=== PATIENT | female | born 1955 | race Caucasian/White ===

== ENCOUNTER 2017-05-28 09:16 | Emergency (ER) | payer MEDICARE, MEDICAID ==
[~2017-05-28] VITALS: Ht 165.1 cm; Wt 65.9 kg
[~2017-05-28 09:16] MED LIST: ALBU8HFA PO; DIVA500T2 PO; ONDA8TAB6 PO; PARO40TA PO
[2017-05-28] MEDS ORDERED: PRED20TA PO (12:03)
[2017-05-28 12:12] VITALS: BP 122/62
== END 2017-05-28 12:13 | disposition home or self-care (01) ==
LOC: ER 09:16
DX: J42 Unspecified chronic bronchitis (principal); J06.9 Acute upper respiratory infection, unspecified; K13.79 Other lesions of oral mucosa; F17.210 Nicotine dependence, cigarettes, uncomplicated; J45.909 Unspecified asthma, uncomplicated; G89.29 Other chronic pain; F12.10 Cannabis abuse, uncomplicated; Z86.14 Personal history of Methicillin resistant Staphylococcus aureus infection; Z98.890 Other specified postprocedural states; Z88.0 Allergy status to penicillin; Z88.8 Allergy status to other drugs, medicaments and biological substances
CPT/HCPCS: 99283; A6266; A6449

== ENCOUNTER 2017-11-13 12:48 | Inpatient (IN) | payer MEDICARE, MEDICAID ==
[~2017-11-13] VITALS: Ht 165.1 cm; Wt 69.2 kg
[~2017-11-13 12:48] MED LIST changes: -ALBU8HFA PO; +BUPR1FIL17 SL; +CYCL-1 PO; +DIVA125T3 PO; -DIVA500T2 PO; +GABA800T2 PO; +HYDR-3686 PO; -ONDA8TAB6 PO; +PRAZ5CAP PO
[2017-11-13 14:13] VITALS: BP 130/76
[2017-11-13] MEDS ORDERED: ADV50250 INH (15:22)
[2017-11-13] MEDS ORDERED: PARO20TA6 PO (15:22)
[2017-11-13] MEDS ORDERED: GABA800T2 PO ×2 (15:22)
[2017-11-13] MEDS ORDERED: VALP250C44 PO (15:22)
[2017-11-13] MEDS ORDERED: PRAZ1CAP5 PO (15:22)
[2017-11-13] MEDS ORDERED: DIVA500T40 PO (15:22)
[2017-11-13] MEDS ORDERED: IBUP-1985 PO (15:22)
[2017-11-13] MEDS ORDERED: magnesium hydroxide 30ml (MOM) UD suspension PO PRN (15:30)
[2017-11-13] MEDS ORDERED: acetaminophen 325mg tablet PO PRN (15:30)
[2017-11-13] MEDS ORDERED: mag hydrox/Alum hydrox/simeth 30ml oral suspension PO PRN (15:30)
[2017-11-13 19:00] VITALS: BP 141/75
[2017-11-13] MEDS ORDERED: valproic acid 250mg capsule PO SCH (20:00)
[2017-11-13] MEDS ORDERED: [UNRECOGNIZED DRUG - OTHER] SL SCH (20:00)
[2017-11-13] MEDS ORDERED: NALOXONE HCL SL SCH (20:00)
[2017-11-13] MEDS ORDERED: BUPRENORPHINE HCL SL SCH (20:00)
[2017-11-13] MEDS: hydrOXYzine 25 MG tablet PO SCH (21:07)
[2017-11-13] MEDS: buprenorphine/naloxone 2-0.5mg sublingual tablet SL SCH (21:07)
[2017-11-13] MEDS: divalproex sodium 500mg tablet.DR PO SCH (21:07)
[2017-11-13] MEDS: cyclobenzaprine 10mg tablet PO PRN (21:08)
[2017-11-13] MEDS: PARoxetine 20mg tablet PO SCH (21:08)
[2017-11-13] MEDS: prazosin 1mg capsule PO SCH (21:08)
[2017-11-13] MEDS: gabapentin 400mg capsule PO SCH (21:08)
[2017-11-13] MEDS: ibuprofen 200mg tablet PO PRN (21:09)
[2017-11-14 07:25] LABS: HEMOGLOBIN A1C 5.5 % (4.5-6.2)
[2017-11-14 07:33] LABS: CHOL/HDL RATIO 5.1 (0.00-4.99); CHOLESTEROL 179 MG/DL (0-200); HDL CHOLESTEROL 35 MG/DL (35-60); LDL CHOLESTEROL 109 MG/DL (50-100); TRIGLYCERIDES 184 MG/DL (20-135)
[2017-11-14 08:00] VITALS: BP 113/83
[2017-11-14] MEDS: gabapentin 400mg capsule PO SCH ×3 (08:57→19:58)
[2017-11-14] MEDS: valproic acid 250mg capsule PO SCH ×2 (08:58→12:55)
[2017-11-14] MEDS: buprenorphine/naloxone 2-0.5mg sublingual tablet SL SCH ×2 (08:58→19:56)
[2017-11-14] MEDS: cyclobenzaprine 10mg tablet PO PRN (09:02)
[2017-11-14] MEDS: fluticasone/vilanterol 200mcg/25mcg inhaler IH SCH (12:56)
[2017-11-14] MEDS: nicotine 14mg patch - 24hr TD SCH (17:44)
[2017-11-14 19:00] VITALS: BP 127/87
[2017-11-14] MEDS: hydrOXYzine 25 MG tablet PO SCH (19:57)
[2017-11-14] MEDS: divalproex sodium 500mg tablet.DR PO SCH (19:57)
[2017-11-14] MEDS: prazosin 1mg capsule PO SCH (19:57)
[2017-11-14] MEDS: PARoxetine 20mg tablet PO SCH (21:26)
[2017-11-15] MEDS: fluticasone/vilanterol 200mcg/25mcg inhaler IH SCH (07:20)
[2017-11-15 08:00] VITALS: BP 129/72
[2017-11-15] MEDS: buprenorphine/naloxone 2-0.5mg sublingual tablet SL SCH ×2 (08:06→20:06)
[2017-11-15] MEDS: nicotine 14mg patch - 24hr TD SCH (08:06)
[2017-11-15] MEDS: valproic acid 250mg capsule PO SCH ×2 (08:06→13:04)
[2017-11-15] MEDS: gabapentin 400mg capsule PO SCH ×3 (08:07→20:08)
[2017-11-15] MEDS: ibuprofen 200mg tablet PO PRN (13:05)
[2017-11-15] MEDS: cyclobenzaprine 10mg tablet PO PRN (14:18)
[2017-11-15 19:31] VITALS: BP 152/75
[2017-11-15] MEDS: prazosin 1mg capsule PO SCH (20:07)
[2017-11-15] MEDS: hydrOXYzine 25 MG tablet PO SCH (20:07)
[2017-11-15] MEDS: divalproex sodium 500mg tablet.DR PO SCH (20:07)
[2017-11-15] MEDS: PARoxetine 20mg tablet PO SCH (20:09)
[2017-11-15] MEDS: zolpidem 5mg tablet PO PRN (20:15)
[2017-11-16] MEDS: buprenorphine/naloxone 2-0.5mg sublingual tablet SL SCH ×2 (07:18→21:01)
[2017-11-16] MEDS: nicotine 14mg patch - 24hr TD SCH (07:18)
[2017-11-16] MEDS: valproic acid 250mg capsule PO SCH ×2 (07:18→12:29)
[2017-11-16] MEDS: gabapentin 400mg capsule PO SCH ×3 (07:18→21:02)
[2017-11-16 08:00] VITALS: BP 135/74
[2017-11-16] MEDS: fluticasone/vilanterol 200mcg/25mcg inhaler IH SCH (08:00)
[2017-11-16] MEDS: cyclobenzaprine 10mg tablet PO PRN ×2 (12:31→21:03)
[2017-11-16 19:31] VITALS: BP 113/71
[2017-11-16] MEDS: hydrOXYzine 25 MG tablet PO SCH (21:01)
[2017-11-16] MEDS: divalproex sodium 500mg tablet.DR PO SCH (21:01)
[2017-11-16] MEDS: prazosin 1mg capsule PO SCH (21:02)
[2017-11-16] MEDS: PARoxetine 20mg tablet PO SCH (21:02)
[2017-11-16] MEDS: zolpidem 5mg tablet PO PRN (21:03)
[2017-11-17] MEDS: gabapentin 400mg capsule PO SCH ×3 (07:49→21:23)
[2017-11-17] MEDS: valproic acid 250mg capsule PO SCH ×2 (07:49→12:00)
[2017-11-17] MEDS: buprenorphine/naloxone 2-0.5mg sublingual tablet SL SCH ×2 (07:59→21:39)
[2017-11-17] MEDS: nicotine 14mg patch - 24hr TD SCH (08:00)
[2017-11-17] MEDS: fluticasone/vilanterol 200mcg/25mcg inhaler IH SCH (08:21)
[2017-11-17 08:26] VITALS: BP 118/69
[2017-11-17] MEDS: acetaminophen 325mg tablet PO PRN (12:00)
[2017-11-17] MEDS: cyclobenzaprine 10mg tablet PO PRN ×2 (12:15→21:38)
[2017-11-17 19:48] VITALS: BP 114/63
[2017-11-17] MEDS: PARoxetine 20mg tablet PO SCH (21:22)
[2017-11-17] MEDS: hydrOXYzine 25 MG tablet PO SCH (21:22)
[2017-11-17] MEDS: zolpidem 5mg tablet PO PRN (21:23)
[2017-11-17] MEDS: prazosin 1mg capsule PO SCH (21:23)
[2017-11-17] MEDS: divalproex sodium 500mg tablet.DR PO SCH (21:38)
[2017-11-18] MEDS: fluticasone/vilanterol 200mcg/25mcg inhaler IH SCH (07:22)
[2017-11-18] MEDS: valproic acid 250mg capsule PO SCH ×2 (07:54→12:26)
[2017-11-18] MEDS: gabapentin 400mg capsule PO SCH ×3 (07:54→21:18)
[2017-11-18] MEDS: nicotine 14mg patch - 24hr TD SCH (07:54)
[2017-11-18] MEDS: buprenorphine/naloxone 2-0.5mg sublingual tablet SL SCH ×2 (07:54→21:17)
[2017-11-18 08:20] VITALS: BP 111/61
[2017-11-18] MEDS: cyclobenzaprine 10mg tablet PO PRN ×2 (12:26→19:13)
[2017-11-18] MEDS: ibuprofen 200mg tablet PO PRN (19:13)
[2017-11-18] MEDS: hydrOXYzine 25 MG tablet PO PRN (19:14)
[2017-11-18 19:15] VITALS: BP 105/57
[2017-11-18 21:00] VITALS: BP 110/60
[2017-11-18] MEDS: divalproex sodium 500mg tablet.DR PO SCH (21:17)
[2017-11-18] MEDS: PARoxetine 20mg tablet PO SCH (21:18)
[2017-11-18] MEDS: prazosin 1mg capsule PO SCH (21:31)
[2017-11-18] MEDS: zolpidem 5mg tablet PO PRN (21:31)
[2017-11-19] MEDS: hydrOXYzine 25 MG tablet PO PRN ×3 (01:18→21:36)
[2017-11-19 08:00] VITALS: BP 104/61
[2017-11-19] MEDS: valproic acid 250mg capsule PO SCH ×2 (08:16→13:05)
[2017-11-19] MEDS: gabapentin 400mg capsule PO SCH ×3 (08:16→21:36)
[2017-11-19] MEDS: nicotine 14mg patch - 24hr TD SCH (08:16)
[2017-11-19] MEDS: buprenorphine/naloxone 2-0.5mg sublingual tablet SL SCH ×2 (08:16→21:35)
[2017-11-19] MEDS: fluticasone/vilanterol 200mcg/25mcg inhaler IH SCH (08:18)
[2017-11-19 18:54] VITALS: BP 138/75
[2017-11-19] MEDS: cyclobenzaprine 10mg tablet PO PRN (19:18)
[2017-11-19] MEDS: ibuprofen 200mg tablet PO PRN (19:18)
[2017-11-19] MEDS: prazosin 1mg capsule PO SCH (21:35)
[2017-11-19] MEDS: busPIRone 5mg tablet PO SCH (21:35)
[2017-11-19] MEDS: divalproex sodium 500mg tablet.DR PO SCH (21:35)
[2017-11-19] MEDS: PARoxetine 20mg tablet PO SCH (21:36)
[2017-11-19] MEDS: zolpidem 5mg tablet PO PRN (21:37)
[2017-11-20 07:34] VITALS: BP 120/70
[2017-11-20] MEDS: nicotine 14mg patch - 24hr TD SCH (07:37)
[2017-11-20] MEDS: gabapentin 400mg capsule PO SCH ×3 (07:37→20:16)
[2017-11-20] MEDS: buprenorphine/naloxone 2-0.5mg sublingual tablet SL SCH ×2 (07:37→20:15)
[2017-11-20] MEDS: valproic acid 250mg capsule PO SCH ×2 (07:37→12:15)
[2017-11-20] MEDS: busPIRone 5mg tablet PO SCH ×2 (07:37→20:15)
[2017-11-20] MEDS: fluticasone/vilanterol 200mcg/25mcg inhaler IH SCH (07:40)
[2017-11-20] MEDS: cyclobenzaprine 10mg tablet PO PRN ×2 (12:17→20:17)
[2017-11-20 19:27] VITALS: BP 126/66
[2017-11-20] MEDS: divalproex sodium 500mg tablet.DR PO SCH (20:15)
[2017-11-20] MEDS: prazosin 1mg capsule PO SCH (20:16)
[2017-11-20] MEDS: zolpidem 5mg tablet PO PRN (20:16)
[2017-11-20] MEDS: PARoxetine 20mg tablet PO SCH (20:16)
[2017-11-20] MEDS: hydrOXYzine 25 MG tablet PO PRN (20:16)
[2017-11-20] MEDS: ibuprofen 200mg tablet PO PRN (20:17)
[2017-11-21] MEDS: valproic acid 250mg capsule PO SCH ×2 (07:52→13:08)
[2017-11-21] MEDS: buprenorphine/naloxone 2-0.5mg sublingual tablet SL SCH ×2 (07:52→20:33)
[2017-11-21] MEDS: busPIRone 5mg tablet PO SCH ×3 (07:53→20:32)
[2017-11-21] MEDS: nicotine 14mg patch - 24hr TD SCH (07:53)
[2017-11-21] MEDS: gabapentin 400mg capsule PO SCH ×3 (07:53→20:36)
[2017-11-21 08:00] VITALS: BP 103/76
[2017-11-21] MEDS: ibuprofen 200mg tablet PO PRN (08:00)
[2017-11-21] MEDS: cyclobenzaprine 10mg tablet PO PRN ×2 (08:00→20:37)
[2017-11-21] MEDS ORDERED: busPIRone 5mg tablet PO ONE (08:20)
[2017-11-21] MEDS: fluticasone/vilanterol 200mcg/25mcg inhaler IH SCH (08:52)
[2017-11-21 19:55] VITALS: BP 112/70
[2017-11-21] MEDS: divalproex sodium 500mg tablet.DR PO SCH (20:34)
[2017-11-21] MEDS: PARoxetine 20mg tablet PO SCH (20:35)
[2017-11-21] MEDS: prazosin 1mg capsule PO SCH (20:36)
[2017-11-21] MEDS: zolpidem 5mg tablet PO PRN (20:36)
[2017-11-22] MEDS: gabapentin 400mg capsule PO SCH ×3 (06:35→20:18)
[2017-11-22] MEDS: valproic acid 250mg capsule PO SCH ×2 (06:35→12:28)
[2017-11-22] MEDS: buprenorphine/naloxone 2-0.5mg sublingual tablet SL SCH ×2 (07:49→20:17)
[2017-11-22] MEDS: busPIRone 5mg tablet PO SCH ×2 (07:49→20:18)
[2017-11-22] MEDS: nicotine 14mg patch - 24hr TD SCH (07:50)
[2017-11-22 08:00] VITALS: BP 127/67
[2017-11-22] MEDS: fluticasone/vilanterol 200mcg/25mcg inhaler IH SCH (11:32)
[2017-11-22] MEDS ORDERED: tuberculin, purif. prot. deriv. 5 units/0.1ml ID ONE (11:40)
[2017-11-22] MEDS: cyclobenzaprine 10mg tablet PO PRN (16:12)
[2017-11-22] MEDS: ibuprofen 200mg tablet PO PRN (16:12)
[2017-11-22 19:19] VITALS: BP 119/68
[2017-11-22] MEDS: zolpidem 5mg tablet PO PRN (20:17)
[2017-11-22] MEDS: divalproex sodium 500mg tablet.DR PO SCH (20:17)
[2017-11-22] MEDS: PARoxetine 20mg tablet PO SCH (20:18)
[2017-11-22] MEDS: prazosin 1mg capsule PO SCH (20:18)
[2017-11-23 08:00] VITALS: BP 130/70
[2017-11-23] MEDS: fluticasone/vilanterol 200mcg/25mcg inhaler IH SCH ×2 (08:00→11:38)
[2017-11-23] MEDS: gabapentin 400mg capsule PO SCH ×3 (09:04→20:26)
[2017-11-23] MEDS: valproic acid 250mg capsule PO SCH ×2 (09:04→13:32)
[2017-11-23] MEDS: buprenorphine/naloxone 2-0.5mg sublingual tablet SL SCH ×2 (09:04→20:26)
[2017-11-23] MEDS: busPIRone 5mg tablet PO SCH ×2 (09:04→20:26)
[2017-11-23] MEDS: nicotine 14mg patch - 24hr TD SCH (09:05)
[2017-11-23 20:00] VITALS: BP 102/50
[2017-11-23] MEDS: PARoxetine 20mg tablet PO SCH (20:26)
[2017-11-23] MEDS: prazosin 1mg capsule PO SCH (20:27)
[2017-11-23] MEDS: zolpidem 5mg tablet PO PRN (20:30)
[2017-11-23] MEDS: divalproex sodium 500mg tablet.DR PO SCH (20:31)
[2017-11-23] MEDS: cyclobenzaprine 10mg tablet PO PRN (22:25)
[2017-11-24] MEDS: hydrOXYzine 25 MG tablet PO PRN ×3 (05:29→21:05)
[2017-11-24] MEDS: cyclobenzaprine 10mg tablet PO PRN (05:29)
[2017-11-24] MEDS: ibuprofen 200mg tablet PO PRN (05:30)
[2017-11-24] MEDS: buprenorphine/naloxone 2-0.5mg sublingual tablet SL SCH ×2 (07:36→20:10)
[2017-11-24] MEDS: valproic acid 250mg capsule PO SCH ×2 (07:36→12:58)
[2017-11-24] MEDS: gabapentin 400mg capsule PO SCH ×3 (07:36→20:10)
[2017-11-24] MEDS: nicotine 14mg patch - 24hr TD SCH (07:36)
[2017-11-24] MEDS: busPIRone 5mg tablet PO SCH ×2 (07:37→20:10)
[2017-11-24 07:49] VITALS: BP 130/70
[2017-11-24 19:00] VITALS: BP 106/70
[2017-11-24] MEDS: divalproex sodium 500mg tablet.DR PO SCH (20:10)
[2017-11-24] MEDS: PARoxetine 20mg tablet PO SCH (20:10)
[2017-11-24] MEDS: prazosin 1mg capsule PO SCH (20:10)
[2017-11-25] MEDS ORDERED: GABA-534 PO (07:18)
[2017-11-25] MEDS ORDERED: CYCL-1 PO (07:18)
[2017-11-25] MEDS ORDERED: BUPR1TAB52 SL (07:18)
[2017-11-25] MEDS ORDERED: VALP250C44 PO (07:18)
[2017-11-25] MEDS ORDERED: PARO40TA4 PO (07:18)
[2017-11-25] MEDS ORDERED: PRAZ1CAP5 PO (07:18)
[2017-11-25] MEDS ORDERED: NICO-631 TD (07:18)
[2017-11-25] MEDS ORDERED: ZOLP5TAB8 PO (07:18)
[2017-11-25] MEDS ORDERED: FLUT1BLS3 IH (07:18)
[2017-11-25] MEDS ORDERED: DIVA500T2 PO (07:18)
[2017-11-25] MEDS ORDERED: HYDR-3686 PO (07:18)
[2017-11-25] MEDS ORDERED: BUSP10TA10 PO (07:18)
[2017-11-25] MEDS ORDERED: IBUP-2264 PO (07:18)
[2017-11-25] MEDS: valproic acid 250mg capsule PO SCH (07:34)
[2017-11-25] MEDS: buprenorphine/naloxone 2-0.5mg sublingual tablet SL SCH (07:34)
[2017-11-25] MEDS: gabapentin 400mg capsule PO SCH (07:34)
[2017-11-25] MEDS: nicotine 14mg patch - 24hr TD SCH (07:35)
[2017-11-25] MEDS: busPIRone 5mg tablet PO SCH (07:35)
[2017-11-25 07:46] VITALS: BP 127/76
[2017-11-25] MEDS: cyclobenzaprine 10mg tablet PO PRN (08:18)
[2017-11-25] MEDS: acetaminophen 325mg tablet PO PRN (08:19)
[2017-11-25] MEDS: fluticasone/vilanterol 200mcg/25mcg inhaler IH SCH (08:40)
== END 2017-11-25 10:45 | DRG 885 ==
LOC: ADULT MH 12:48 → UNDODISIN 11-14 02:20 → ADULT MH 11-23 14:08
PROVIDERS: ADMIT Psychiatry & Neurology Psychiatry; ATTEND Psychiatry & Neurology Psychiatry
DX: F33.2 Major depressive disorder, recurrent severe without psychotic features (principal); G62.9 Polyneuropathy, unspecified; R45.851 Suicidal ideations; M41.9 Scoliosis, unspecified; J44.9 Chronic obstructive pulmonary disease, unspecified; F41.8 Other specified anxiety disorders; F43.10 Post-traumatic stress disorder, unspecified; E78.1 Pure hyperglyceridemia; M17.10 Unilateral primary osteoarthritis, unspecified knee; G43.909 Migraine, unspecified, not intractable, without status migrainosus; F41.0 Panic disorder [episodic paroxysmal anxiety]; M79.7 Fibromyalgia; G89.4 Chronic pain syndrome; Z59.0 Homelessness; Z79.899 Other long term (current) drug therapy; Z87.898 Personal history of other specified conditions; Z88.1 Allergy status to other antibiotic agents; Z88.8 Allergy status to other drugs, medicaments and biological substances; Z86.12 Personal history of poliomyelitis; Z90.710 Acquired absence of both cervix and uterus; Z91.410 Personal history of adult physical and sexual abuse
CPT/HCPCS: 36415; 80061; 83036; 87070; 94640; 94760; 99285; 99406; Q0177

== ENCOUNTER → 2017-12-18 | Emergency (ER) | payer MEDICARE, MEDICAID ==
[~2017-12-18] VITALS: Ht 165.1 cm; Wt 70.0 kg
[~2017-12-18] MED LIST changes: +AZIT-57 PO; -BUPR1FIL17 SL; +BUPR1TAB52 SL; +BUSP10TA10 PO; +DIVA-81 PO; -DIVA125T3 PO; +DIVA500T2 PO; +FLUT1BLS3 IH; +GABA-534 PO; -GABA800T2 PO; +GUAI1TBM19 PO; +IBUP-2264 PO; +NICO-631 TD; +NYSPWD TP; -PARO40TA PO; +PARO40TA4 PO; +PRAZ1CAP5 PO; -PRAZ5CAP PO; +VALP250C44 PO; +ZOLP5TAB8 PO; +acetaminophen 325mg tablet PO STA; +azithromycin 250mg tablet PO ONE; +ipratropium/albuterol 3ml nebule NEB ONE; +normal saline 1000ML IV soln IV ONE
[2017-12-18 11:15] LABS: CLARITY,URINE CLEAR (Clear); COLOR,URINE YELLOW (Yellow); GLUCOSE, URINE 250 mg/dl (Neg); KETONES,URINE NEGATIVE (Neg); LEUKOCYTE ESTERASE ,URINE NEGATIVE (Neg); NITRITES, URINE NEGATIVE (Neg); OCCULT BLOOD,URINE SMALL (Neg); PH,URINE 6.5 (4.8-8.0); PROTEIN,URINE TRACE mg/dl (Neg)
[2017-12-18 11:16] LABS: UA COLLECTION TYPE CLN CATCH MIDSTREAM
[2017-12-18 11:26] LABS: BACTERIA,URINE FEW /HPF (Neg); MUCUS STRANDS NONE SEEN /LPF (Neg); SQUAMOUS EPITHELIAL CELL,UR FEW /LPF (FEW); WBC,URINE 0-4 /HPF (0-4)
[2017-12-18 12:26] LABS: BASOPHILS % (AUTO) 0.2 % (0-1); EOSINOPHILS # (AUTO) 0.1 X10'3 (0-0.9); EOSINOPHILS % (AUTO) 1.2 % (0-6); HEMATOCRIT 36.2 % (35.0-45.0); HEMOGLOBIN 12.5 g/dl (12.0-16.0); LYMPHOCYTES # (AUTO) 1.3 X10'3 (1.1-4.8); LYMPHOCYTES % (AUTO) 24.8 % (21-51); MEAN CORPUSCULAR HEMOGLOBIN 30.5 PG (27.0-31.0); MEAN CORPUSCULAR HGB CONC 34.5 % (33.0-36.5); MEAN CORPUSCULAR VOLUME 88.4 FL (78-98); MEAN PLATELET VOLUME 7.3 FL (7.4-10.4); MONOCYTES # (AUTO) 0.5 X10'3 (0-0.9); MONOCYTES % (AUTO) 10.7 % (2-12); NEUTROPHILS # (AUTO) 3.2 X10'3 (1.8-7.7); NEUTROPHILS % (AUTO) 63.1 % (42-75); PLATELET COUNT 185 X10'3 (140-440); RED BLOOD COUNT 4.09 X10'6 (4.20-5.60); RED CELL DISTRIBUTION WIDTH 16.3 % (11.5-14.5); WHITE BLOOD COUNT 5.1 X10'3 (4.5-11.0)
[2017-12-18 12:41] LABS: ALANINE AMINOTRANSFERASE 16 U/L (12-78); ALBUMIN 3.2 G/DL (3.4-5.0); ALKALINE PHOSPHATASE 75 IU/L (46-116); ANION GAP 3 (8-16); ASPARTATE AMINO TRANSFERASE 20 U/L (10-37); BILIRUBIN,TOTAL 0.2 MG/DL (0.1-1.0); BLOOD UREA NITROGEN 13 MG/DL (7-18); BUN/CREATININE RATIO 22.4 (6.6-38.0); CALCIUM 8.7 MG/DL (8.5-10.1); CHLORIDE 105 MMOL/L (99-107); CREATININE 0.58 MG/DL (0.40-0.90); GLUCOSE 77 MG/DL (70-104); MAGNESIUM 2.1 MG/DL (1.5-2.4); POTASSIUM 3.9 MMOL/L (3.5-5.1); SODIUM 140 MMOL/L (135-145); TOTAL CARBON DIOXIDE 31.6 MMOL/L (24-32); TOTAL PROTEIN 6.5 G/DL (6.4-8.2); eGFR > 90 ML/MIN
[2017-12-18 15:07] VITALS: BP 112/77
== END | disposition home or self-care (01) ==
LOC: ER 10:46
DX: J18.9 Pneumonia, unspecified organism (principal); B37.9 Candidiasis, unspecified; G43.909 Migraine, unspecified, not intractable, without status migrainosus; K57.90 Diverticulosis of intestine, part unspecified, without perforation or abscess without bleeding; F12.10 Cannabis abuse, uncomplicated; Z88.1 Allergy status to other antibiotic agents; Z88.8 Allergy status to other drugs, medicaments and biological substances
CPT/HCPCS: 36415; 71046; 80053; 81001; 83605; 83735; 84145; 85025; 87040; 93005; 94640; 94760; 96360; 99285; J7030

== ENCOUNTER 2018-08-03 14:31 | Emergency (ER) | payer MEDICARE, MEDICAID ==
[~2018-08-03] VITALS: Ht 165.1 cm; Wt 61.0 kg
[~2018-08-03 14:31] MED LIST changes: -AZIT-57 PO; -DIVA-81 PO; -GUAI1TBM19 PO; -IBUP-2264 PO; +ONDA8TAB9 PO; +PANT20TA2 PO; -acetaminophen 325mg tablet PO STA; -azithromycin 250mg tablet PO ONE; -ipratropium/albuterol 3ml nebule NEB ONE; -normal saline 1000ML IV soln IV ONE
--- NOTE | 2018-08-03 15:28 | NUR ---
Patient is now appropriately dressed in green scrubs and resting quietly in bed.
--- NOTE | 2018-08-03 15:30 | NUR ---
Lala and I went through patient's belongings and made sure that she had no contraband. We placed 3 bags of belongings in the ambulance bay lockers on shelf 23.
[2018-08-03 15:34] LABS: BASOPHILS % (AUTO) 0.6 % (0-1); EOSINOPHILS # (AUTO) 0.1 X10'3 (0-0.9); HEMATOCRIT 44.2 % (35.0-45.0); HEMOGLOBIN 14.8 g/dl (12.0-16.0); LYMPHOCYTES # (AUTO) 1.9 X10'3 (1.1-4.8); LYMPHOCYTES % (AUTO) 26.6 % (21-51); MEAN CORPUSCULAR HGB CONC 33.6 % (33.0-36.5); MEAN CORPUSCULAR VOLUME 92.5 FL (78-98); MEAN PLATELET VOLUME 7.6 FL (7.4-10.4); MONOCYTES # (AUTO) 0.3 X10'3 (0-0.9); MONOCYTES % (AUTO) 4.5 % (2-12); NEUTROPHILS # (AUTO) 4.7 X10'3 (1.8-7.7); NEUTROPHILS % (AUTO) 66.3 % (42-75); PLATELET COUNT 220 X10'3 (140-440); RED BLOOD COUNT 4.78 X10'6 (4.20-5.60); RED CELL DISTRIBUTION WIDTH 16.2 % (11.5-14.5); WHITE BLOOD COUNT 7.1 X10'3 (4.5-11.0)
[2018-08-03 15:39] LABS: CLARITY,URINE SLIGHTLY CLOUDY (Clear); COLOR,URINE YELLOW (Yellow); GLUCOSE, URINE NEGATIVE (Neg); KETONES,URINE NEGATIVE (Neg); LEUKOCYTE ESTERASE ,URINE NEGATIVE (Neg); NITRITES, URINE NEGATIVE (Neg); OCCULT BLOOD,URINE SMALL (Neg); PH,URINE 5.5 (4.8-8.0); PROTEIN,URINE 100 mg/dl (Neg); UA COLLECTION TYPE CLN CATCH MIDSTREAM; UROBILINOGEN,URINE 0.2 E.U/dL (0.2-1.0)
[2018-08-03 15:44] LABS: BACTERIA,URINE FEW /HPF (Neg); HYALINE CASTS 0-3 /LPF (NEGATIVE); MUCUS STRANDS MODERATE /LPF (Neg); SQUAMOUS EPITHELIAL CELL,UR MODERATE /LPF (FEW); WBC,URINE 0-4 /HPF (0-4)
[2018-08-03 15:46] LABS: URINE AMPHETAMINE SCREEN NEGATIVE (Neg); URINE BARBITUATE SCREEN NEGATIVE (Neg); URINE BENZODIAZEPINES SCREEN NEGATIVE (Neg); URINE CANNABINOID SCREEN NEGATIVE (Neg); URINE COCAINE SCREEN NEGATIVE (Neg); URINE METHADONE SCREEN NEGATIVE (Neg); URINE OPIATE SCREEN NEGATIVE (Neg); URINE PHENCYCLIDINE SCREEN NEGATIVE (Neg)
[2018-08-03 15:47] LABS: ALANINE AMINOTRANSFERASE 23 U/L (12-78); ALBUMIN 3.9 G/DL (3.4-5.0); ALBUMIN/GLOBULIN RATIO 1.1 (1.1-1.5); ALKALINE PHOSPHATASE 100 IU/L (46-116); ANION GAP 6 (8-16); ASPARTATE AMINO TRANSFERASE 17 U/L (10-37); BILIRUBIN,TOTAL 0.2 MG/DL (0.1-1.0); BLOOD UREA NITROGEN 24 MG/DL (7-18); BUN/CREATININE RATIO 36.4 (6.6-38.0); CALCIUM 9.1 MG/DL (8.5-10.1); CHLORIDE 102 MMOL/L (99-107); CREATININE 0.66 MG/DL (0.40-0.90); ETHANOL < 0.010 GM/DL (0.0-0.010); GLUCOSE 96 MG/DL (70-104); SODIUM 139 MMOL/L (135-145); TOTAL CARBON DIOXIDE 30.8 MMOL/L (24-32); TOTAL PROTEIN 7.3 G/DL (6.4-8.2); eGFR 90 ML/MIN
[2018-08-03 15:54] LABS: VALPROATE < 3.0 UG/ML (50-100)
--- NOTE | 2018-08-03 17:51 | NUR ---
Admission Interventions completed. Tearful during interview. States she is having difficulty at her present apartment complex. "People are accusing me of starving my dog. There is a clique there and I'm not part of it. They get together every day and talk about all the people in the complex they don't like and I am one of them. I can't take it anymore. I find myself thinking about ending my life."
--- NOTE | 2018-08-03 18:35 | NUR ---
Assumed care of pt, 1799 due to S/I with plan, new admit, needs medication reconciliation and telepsych completed.
--- NOTE | 2018-08-03 19:30 | NUR ---
Med reconciliation reviewed with pt via external medication review, pt using [facility] and [facility] pharmacy.
[2018-08-03] MEDS ORDERED: PARO20TA6 PO (19:41)
[2018-08-03] MEDS ORDERED: BUPR1FIL3 SL (19:41)
[2018-08-03] MEDS ORDERED: BUPR1FIL5 SL (19:41)
[2018-08-03] MEDS ORDERED: BUSP10TA11 PO (19:41)
[2018-08-03] MEDS ORDERED: GABA800T11 PO ×2 (19:41)
[2018-08-03] MEDS ORDERED: PRAZ1CAP5 PO (19:52)
--- NOTE | 2018-08-03 20:08 | NUR ---
Telepsych contacted to set up consultation.
--- NOTE | 2018-08-03 20:45 | NUR ---
Pt lying on R side, RR even and unlabored, appears in no acute distress.
[2018-08-03] MEDS: gabapentin 400mg capsule PO SCH (21:30)
[2018-08-03] MEDS: prazosin 1mg capsule PO SCH (21:30)
[2018-08-03] MEDS: PARoxetine 20mg tablet PO SCH (21:31)
[2018-08-03] MEDS: buprenorphine/naloxone 8MG-2MG SUBlingual film SL SCH (21:31)
--- NOTE | 2018-08-03 22:31 | NUR ---
Pt sitting up in bed with telepsych camera set up and waiting to speak with psychiatrist, RR even and unlabored, appears in no distress.
--- NOTE | 2018-08-03 23:23 | NUR ---
Report given to telepsych
--- NOTE | 2018-08-04 01:07 | NUR ---
Pt lying on back RR even and unlabored, no signs of distress.
--- NOTE | 2018-08-04 03:13 | NUR ---
Pt lying on her back, RR even and unlabored, no signs of distress.
--- NOTE | 2018-08-04 05:19 | NUR ---
Pt resting on her back, RR even and unlabored, no signs of distress.
[2018-08-04] MEDS: gabapentin 400mg capsule PO SCH ×3 (08:25→20:32)
[2018-08-04] MEDS: busPIRone 5mg tablet PO SCH ×2 (08:25→20:32)
[2018-08-04] MEDS: buprenorphine/naloxone 2-0.5mg sublingual tablet SL SCH (08:25)
[2018-08-04] MEDS ORDERED: VALP250C44 (09:27)
[2018-08-04] MEDS ORDERED: VALP250C44 PO (09:30)
[2018-08-04] MEDS ORDERED: CYCL-394 PO (13:40)
[2018-08-04] MEDS ORDERED: ZOLP5TAB8 PO (13:56)
[2018-08-04] MEDS ORDERED: IBUP-1985 PO (13:59)
[2018-08-04] MEDS ORDERED: NICO-631 TD (14:01)
[2018-08-04] MEDS: ibuprofen 200mg tablet PO PRN (16:44)
[2018-08-04] MEDS: cyclobenzaprine 10mg tablet PO PRN (16:44)
--- NOTE | 2018-08-04 19:14 | NUR ---
Assumed care of pt, pt is sitting in bed, eating dinner meal. Pts appetite is good. Pt is pleasant, cooperative. States she is suicidal w/plan to overdose on pills and drink whiskey that a friend of hers left at her house, alternative plan is to "cut my femoral artery." Pt is hoping to get admitted to [facility] as she was there in the past and found it to be helpful. Pt states her depression is bad and "I have a lot of important things I need to take care of, but I cant get any of them done."
[2018-08-04] MEDS: buprenorphine/naloxone 8MG-2MG SUBlingual film SL SCH (20:32)
[2018-08-04] MEDS: zolpidem 5mg tablet PO PRN (20:32)
[2018-08-04] MEDS: prazosin 1mg capsule PO SCH (20:32)
--- NOTE | 2018-08-04 21:23 | NUR ---
pt is laying on her back sleeping, rr even and unlabored. pt took evening meds.
[2018-08-04] MEDS: PARoxetine 20mg tablet PO SCH (21:34)
--- NOTE | 2018-08-05 00:29 | NUR ---
pt is laying on her left side, sleeping. RR even and unlabored no s/s distress.
--- NOTE | 2018-08-05 02:09 | NUR ---
pt is laying on her back sleeping, rr even and unlabored.
--- NOTE | 2018-08-05 03:56 | NUR ---
pt laying on right side sleeping. RR even and unlabored no s/s distress.
--- NOTE | 2018-08-05 05:45 | NUR ---
Pt is asleep. rr even and unlabored.
[2018-08-05] MEDS: buprenorphine/naloxone 2-0.5mg sublingual tablet SL SCH (08:25)
[2018-08-05] MEDS: gabapentin 400mg capsule PO SCH ×3 (08:25→21:17)
[2018-08-05] MEDS: busPIRone 5mg tablet PO SCH ×2 (08:25→21:31)
[2018-08-05] MEDS: nicotine 14mg patch - 24hr TD SCH (08:29)
[2018-08-05] MEDS: cyclobenzaprine 10mg tablet PO PRN ×2 (08:31→17:06)
--- NOTE | 2018-08-05 13:16 | NUR ---
DR. CORTES HERE FOR CONDITION REPORT. NO NEW ORDERS AT THIS TIME.
--- NOTE | 2018-08-05 14:47 | NUR ---
PATIENT IN BED SLEEPING, APPEARS COMFORTABLE
[2018-08-05] MEDS: ibuprofen 200mg tablet PO PRN (17:06)
[2018-08-05] MEDS ORDERED: VALP250C44 PO (19:28)
[2018-08-05] MEDS: prazosin 1mg capsule PO SCH (21:16)
[2018-08-05] MEDS: PARoxetine 20mg tablet PO SCH (21:17)
[2018-08-05] MEDS: buprenorphine/naloxone 8MG-2MG SUBlingual film SL SCH (21:18)
[2018-08-05] MEDS: zolpidem 5mg tablet PO PRN (21:31)
--- NOTE | 2018-08-05 21:56 | NUR ---
REQUESTING AMBIEN FOR SLEEP, GIVEN ORDERED.
--- NOTE | 2018-08-05 22:37 | NUR ---
HAVING PROBLEMS SLEEPING DUE TO NEIGHBOR'S AGGITATION.
--- NOTE | 2018-08-06 01:07 | NUR ---
UP TO BR, THEN BACK TO BED.
[2018-08-06] MEDS: cyclobenzaprine 10mg tablet PO PRN ×2 (04:49→14:06)
[2018-08-06] MEDS: ibuprofen 200mg tablet PO PRN ×2 (04:49→14:06)
--- NOTE | 2018-08-06 04:49 | NUR ---
C/O BACK PAIN, MEDICATED WITH IBUPROFEN AND FLEXERAL FOR PAIN AT 8/10.
--- NOTE | 2018-08-06 07:33 | NUR ---
Patient lying supine in bed sleeping. Respirations are even and nonlabored.
[2018-08-06] MEDS: busPIRone 5mg tablet PO SCH ×2 (09:38→20:16)
[2018-08-06] MEDS: buprenorphine/naloxone 2-0.5mg sublingual tablet SL SCH (09:39)
[2018-08-06] MEDS: gabapentin 400mg capsule PO SCH ×3 (09:39→20:16)
[2018-08-06] MEDS: valproic acid 250mg capsule PO SCH ×2 (09:39→14:07)
[2018-08-06] MEDS: nicotine 14mg patch - 24hr TD SCH (09:40)
--- NOTE | 2018-08-06 09:57 | NUR ---
Patient awoke for breakfast. Med compliant. Patient states that she is depressed and that she has mood instability. Started on Depakene for which patient stated, maybe this will help with my moods. Crying softly, stating that she needs to move out of her apartment, but has been so depressed she cannot fill out paperwork. She states that "if I can't get better, there is no reason to continue living. Denies [facility]. States that no matter how hard she tries, she cannot make the right choice. Reassurance given.
--- NOTE | 2018-08-06 14:59 | NUR ---
Patient c/o back pain, bilateral shoulder pain, Flexeril and Motrin given for pain. Patient very appreciative of care, cries softly. Patient sleeping on left side at this time.
--- NOTE | 2018-08-06 16:16 | NUR ---
Patient sitting up in bed. Patient has flat affect, appears depressed. Compliant and cooperative. No needs identified.
--- NOTE | 2018-08-06 17:45 | NUR ---
Patient resting in bed comfortably, eyes open. No signs of distress. Pleasant, cooperative.
--- NOTE | 2018-08-06 18:29 | NUR ---
Report rec'd, [facility]. Eating dinner currently.
--- NOTE | 2018-08-06 19:17 | NUR ---
Resting in bed, eyes closed. Appearing to sleep at this time. No new concerns noted. Will continue to monitor for changes.
[2018-08-06] MEDS: prazosin 1mg capsule PO SCH (20:15)
[2018-08-06] MEDS: zolpidem 5mg tablet PO PRN (20:16)
[2018-08-06] MEDS: PARoxetine 20mg tablet PO SCH (20:16)
[2018-08-06] MEDS: buprenorphine/naloxone 8MG-2MG SUBlingual film SL SCH (20:16)
--- NOTE | 2018-08-06 20:19 | NUR ---
Medications administered. Patient requesting tea, declined by staff, and endorsed as to why, (ie caffiene, needing rest, etc), patient then started to make statements that "I'm soprry I;m such a bother, I'm just really done, guess I should have never asked for the tea". Reinforced the reasoning for no tea at HS, patient just stated "I know", then layed down and turned her back to this nurse.
--- NOTE | 2018-08-06 21:08 | NUR ---
Patient resting in bed with eyes closed, resp are even and unlabored, appearing to sleep. Will continue to monitor.
--- NOTE | 2018-08-06 22:00 | NUR ---
Laying awake in bed, requested a snack, and one given. Will monitor.
--- NOTE | 2018-08-06 22:57 | NUR ---
Laying in bed awake, no needs voiced. Will monitor.
--- NOTE | 2018-08-06 23:56 | NUR ---
Laying in bed, eyes closed, resp are even and unlabored, appears to sleep. Will continue to monitor.
--- NOTE | 2018-08-07 01:28 | NUR ---
Resting in bed, appearing to sleep with even and unlabored respirations. No new concerns or issues noted, will continue to monitor.
--- NOTE | 2018-08-07 02:45 | NUR ---
Resting in bed, appearing to sleep, will monitor.
--- NOTE | 2018-08-07 03:10 | NUR ---
Up to BRP
[2018-08-07] MEDS: ibuprofen 200mg tablet PO PRN ×3 (03:14→23:01)
[2018-08-07] MEDS: cyclobenzaprine 10mg tablet PO PRN ×3 (03:14→23:02)
--- NOTE | 2018-08-07 03:15 | NUR ---
Up to desk requesting PRN medication, administered as ordered, back to bed.
--- NOTE | 2018-08-07 04:22 | NUR ---
Resting in bed, appearing to sleep, will monitor.
--- NOTE | 2018-08-07 05:02 | NUR ---
Resting in bed, vitals taken, no new concerns.
--- NOTE | 2018-08-07 07:21 | NUR ---
PT SLEEPING, NO S/S DISCOMFORT.
[2018-08-07] MEDS: busPIRone 5mg tablet PO SCH ×2 (07:54→20:36)
[2018-08-07] MEDS: valproic acid 250mg capsule PO SCH ×2 (07:54→14:09)
[2018-08-07] MEDS: gabapentin 400mg capsule PO SCH ×3 (07:54→20:37)
[2018-08-07] MEDS: nicotine 14mg patch - 24hr TD SCH (07:55)
[2018-08-07] MEDS: buprenorphine/naloxone 2-0.5mg sublingual tablet SL SCH (08:28)
--- NOTE | 2018-08-07 10:10 | NUR ---
[facility] STAFF IN TO RE EVALUATE PT FOR 5150 DUE TO .
--- NOTE | 2018-08-07 13:00 | NUR ---
PT EATING LUNCH, POLITE AND COOPERATIVE.
--- NOTE | 2018-08-07 16:00 | NUR ---
PT READING MAGAZINES, CALM AND COOPERATIVE.
--- NOTE | 2018-08-07 19:00 | NUR ---
Client resting in bed, awake. Cooperative. Reports she is her losing apartment, states [facility] Hx opiate dependence and is taking suboxone. Reports "severe depression" with plan to take oxy's to "dull the pain and cut femoral artery". Client stated she was "doing well until I meet my boyfriend and then everything fell apart". Awaiting to be admitted to [facility]
[2018-08-07] MEDS: prazosin 1mg capsule PO SCH (20:36)
[2018-08-07] MEDS: PARoxetine 20mg tablet PO SCH (20:36)
[2018-08-07] MEDS: buprenorphine/naloxone 8MG-2MG SUBlingual film SL SCH (20:37)
[2018-08-07] MEDS: zolpidem 5mg tablet PO PRN (20:42)
--- NOTE | 2018-08-07 21:00 | NUR ---
Resting, eye's closed. Resp even and unlabored.
--- NOTE | 2018-08-07 23:07 | NUR ---
Client eating PBJ and milk. Ibuprofen and Flexeril for 6/10 lt knee pain. Resp even and unlabored.
--- NOTE | 2018-08-08 01:00 | NUR ---
Resting in bed, eye's closed. No obvious distress. Respirations even and unlabored.
--- NOTE | 2018-08-08 02:59 | NUR ---
Resting in bed, eye's closed. No obvious distress. Respirations even and unlabored.
--- NOTE | 2018-08-08 05:06 | NUR ---
Vital Signs, client is cooperative. No distress, resp even and unlabored.
[2018-08-08] MEDS: gabapentin 400mg capsule PO SCH ×3 (07:36→20:23)
[2018-08-08] MEDS: cyclobenzaprine 10mg tablet PO PRN ×2 (07:36→16:44)
[2018-08-08] MEDS: busPIRone 5mg tablet PO SCH ×2 (07:36→20:23)
[2018-08-08] MEDS: nicotine 14mg patch - 24hr TD SCH (07:37)
[2018-08-08] MEDS: buprenorphine/naloxone 2-0.5mg sublingual tablet SL SCH (07:46)
[2018-08-08] MEDS: valproic acid 250mg capsule PO SCH ×2 (08:00→12:47)
--- NOTE | 2018-08-08 08:00 | NUR ---
Patient sitting at bedside eating breakfast
--- NOTE | 2018-08-08 09:04 | NUR ---
Moon Hastings patients case repairer called to inquire about patient.
[2018-08-08] MEDS: ibuprofen 200mg tablet PO PRN (16:44)
--- NOTE | 2018-08-08 17:24 | NUR ---
Patient continues to state she feels suicidal if she is let out of the hospital. Stayed in bed all day except to use the bathroom. Ate well. Given Flexoril twice for back pain. Waiting [facility] a bed at [facility]. When asked how she was doing, patient states "I sit here and wait. What is my alternative?"
--- NOTE | 2018-08-08 18:20 | NUR ---
Report received from LILIAN Lam.Pt. very pleasant .nice ,waiting for her dinner.
--- NOTE | 2018-08-08 19:00 | NUR ---
Pt. finished her dinner and is resting in bed.
--- NOTE | 2018-08-08 20:00 | NUR ---
Pt. took her night med. Very plasent ,she said she is much better looking forward for a new start.
[2018-08-08] MEDS: buprenorphine/naloxone 8MG-2MG SUBlingual film SL SCH (20:22)
[2018-08-08] MEDS: prazosin 1mg capsule PO SCH (20:23)
[2018-08-08] MEDS: PARoxetine 20mg tablet PO SCH (20:23)
[2018-08-08] MEDS: zolpidem 5mg tablet PO PRN (20:26)
--- NOTE | 2018-08-08 22:00 | NUR ---
Pt. went to the bathroom,and went back to bed.
--- NOTE | 2018-08-08 23:00 | NUR ---
Pt. is sleeping in her left side.
--- NOTE | 2018-08-09 01:05 | NUR ---
Pt. sleeping on her back comfortable.
--- NOTE | 2018-08-09 01:48 | NUR ---
Pt. up to the bathroom.
--- NOTE | 2018-08-09 05:34 | NUR ---
Vielka was awake,vitals were taken.
--- NOTE | 2018-08-09 06:30 | NUR ---
Report given to LILIAN Lagunas
[2018-08-09] MEDS: gabapentin 400mg capsule PO SCH ×2 (08:01→12:37)
[2018-08-09] MEDS: valproic acid 250mg capsule PO SCH ×2 (08:02→12:37)
[2018-08-09] MEDS: busPIRone 5mg tablet PO SCH (08:02)
[2018-08-09] MEDS: nicotine 14mg patch - 24hr TD SCH (08:02)
[2018-08-09] MEDS: cyclobenzaprine 10mg tablet PO PRN (08:02)
[2018-08-09] MEDS: buprenorphine/naloxone 2-0.5mg sublingual tablet SL SCH (08:02)
[2018-08-09] MEDS: ibuprofen 200mg tablet PO PRN (08:02)
--- NOTE | 2018-08-09 08:36 | NUR ---
Pt resting quietly took her morning meds is being cooperative got a little teary when we were talking about her need for a new apartment she has no suicidal thoughts today and she seems hopeful , pt ate her breakfast and is drinking her coffee. Will continue to monitor.
--- NOTE | 2018-08-09 10:30 | NUR ---
pt resting quietly no complaints other than the door slamming to loud
--- NOTE | 2018-08-09 12:30 | NUR ---
PT COOPERATIVE WILL CONTINUE TO MONITOR SHE IS DISTURBED ABOUT THE DOORS SLAMMING I TOLD HER WE WOULD DO OUR BEST TO AVOID IT
--- NOTE | 2018-08-09 14:30 | NUR ---
pt resting quietly in bed will continue to monitor
--- NOTE | 2018-08-09 16:20 | NUR ---
pt resting quietly
--- NOTE | 2018-08-09 16:45 | NUR ---
pt tansfered by jorge up to [facility] all pt belongings with LILIAN garcia.
[2018-08-09] MEDS ORDERED: IBUP-1984 PO (16:55)
[2018-08-09] MEDS ORDERED: FLUT1DIS4 INH (17:53)
== END 2018-08-09 16:50 ==
LOC: ER 14:31
DX: R45.851 Suicidal ideations (principal); F32.9 Major depressive disorder, single episode, unspecified; F41.9 Anxiety disorder, unspecified; R10.13 Epigastric pain; G43.909 Migraine, unspecified, not intractable, without status migrainosus; G89.29 Other chronic pain; J44.9 Chronic obstructive pulmonary disease, unspecified; F12.90 Cannabis use, unspecified, uncomplicated; F17.200 Nicotine dependence, unspecified, uncomplicated; Z98.890 Other specified postprocedural states; Z90.710 Acquired absence of both cervix and uterus; Z56.0 Unemployment, unspecified; Z79.899 Other long term (current) drug therapy; Z88.1 Allergy status to other antibiotic agents; Z88.6 Allergy status to analgesic agent
CPT/HCPCS: 36415; 80053; 80164; 80305; 80320; 81001; 85025; 99285

== ENCOUNTER 2018-08-09 15:00 | Inpatient (IN) | payer MEDICARE, MEDICAID | END 2018-08-17 14:30 | disposition short-term general hospital (02) | LOC: ADULT MH 15:00 | DX: R45.851 Suicidal ideations (principal); F32.9 Major depressive disorder, single episode, unspecified ==

== ENCOUNTER 2018-10-30 21:31 | Inpatient (IN) | payer MEDICARE, MEDICAID ==
[~2018-10-30] VITALS: Ht 165.1 cm; Wt 67.0 kg
[~2018-10-30 21:31] MED LIST changes: +BUPR1FIL5 SL; +BUPR1TAB36 SL; -BUPR1TAB52 SL; -BUSP10TA10 PO; +BUSP15TA3 PO; -DIVA500T2 PO; -FLUT1BLS3 IH; +FLUT1DIS4 INH; -GABA-534 PO; +GABA800T11 PO; -HYDR-3686 PO; -NYSPWD TP; -ONDA8TAB9 PO; -PANT20TA2 PO
[2018-10-30 22:41] LABS: BASOPHILS % (AUTO) 0.2 % (0-1); EOSINOPHILS # (AUTO) 0.1 X10'3 (0-0.9); EOSINOPHILS % (AUTO) 0.6 % (0-6); HEMATOCRIT 35.5 % (35.0-45.0); LYMPHOCYTES # (AUTO) 1.1 X10'3 (1.1-4.8); LYMPHOCYTES % (AUTO) 7.2 % (21-51); MEAN CORPUSCULAR HEMOGLOBIN 30.3 PG (27.0-31.0); MEAN CORPUSCULAR HGB CONC 33.8 g/dL (33.0-36.5); MEAN CORPUSCULAR VOLUME 89.6 FL (78-98); MONOCYTES # (AUTO) 0.6 X10'3 (0-0.9); MONOCYTES % (AUTO) 3.9 % (2-12); NEUTROPHILS # (AUTO) 12.9 X10'3 (1.8-7.7); NEUTROPHILS % (AUTO) 88.1 % (42-75); PLATELET COUNT 379 X10'3 (140-440); RED BLOOD COUNT 3.96 X10'6 (4.20-5.60); RED CELL DISTRIBUTION WIDTH 15.2 % (11.5-14.5); WHITE BLOOD COUNT 14.6 X10'3 (4.5-11.0)
[2018-10-30 22:49] LABS: ALANINE AMINOTRANSFERASE 23 U/L (12-78); ALBUMIN 3.1 G/DL (3.4-5.0); ALBUMIN/GLOBULIN RATIO 0.7 (1.1-1.5); ALKALINE PHOSPHATASE 100 IU/L (46-116); ANION GAP 12 (8-16); ASPARTATE AMINO TRANSFERASE 28 U/L (10-37); BILIRUBIN,TOTAL 0.5 MG/DL (0.1-1.0); BLOOD UREA NITROGEN 23 MG/DL (7-18); BUN/CREATININE RATIO 28.8 (6.6-38.0); CALCIUM 9.2 MG/DL (8.5-10.1); CHLORIDE 100 MMOL/L (99-107); GLUCOSE 90 MG/DL (70-104); POTASSIUM 3.7 MMOL/L (3.5-5.1); SODIUM 138 MMOL/L (135-145); TOTAL CARBON DIOXIDE 25.6 MMOL/L (24-32); TOTAL PROTEIN 7.4 G/DL (6.4-8.2); eGFR 72 ML/MIN
--- NOTE | 2018-10-31 00:14 | NUR ---
PT HERE WITH [facility]/O [facility] FOR 2 WEEKS, STATES, "IM SICK". DRY COUGH NOTED, LUNGS CLEAR, ADMITS TO USING [facility] LAST NIGHT ALTHOUGH ARRIVES WITH VERY JERKY MOVEMENTS AND UNABLE TO SIT STILL.
--- NOTE | 2018-10-31 00:17 | NUR ---
ATTEMPTED TO GET REPEAT TEMP, BUT PT UNABLE TOHOLD STILL LONG ENOUGH TO KEEP THERMOMETER IN MOUTH.
[2018-10-31] MEDS ORDERED: levoFLOXACIN-Levaquin 750MG/D5 150 ML IV STA (01:39)
[2018-10-31] MEDS ORDERED: normal saline 1000ML IV soln IV ONE (01:40)
[2018-10-31 01:41] LABS: TROPONIN I < 0.04 NG/ML (0.0-0.05)
[2018-10-31] MEDS ORDERED: NORMAL SALINE IV ONE (01:50)
[2018-10-31] MEDS ORDERED: mag hydrox/Alum hydrox/simeth 30ml oral suspension PO PRN (02:05)
[2018-10-31] MEDS ORDERED: ondansetron/PF 4mg/2ml inj IV PRN (02:05)
[2018-10-31] MEDS ORDERED: acetaminophen 325mg tablet PO PRN (02:05)
[2018-10-31] MEDS: normal saline 1000ml 1,000 ML IV SCH ×3 (02:05→23:47)
[2018-10-31] MEDS ORDERED: magnesium hydroxide 30ml (MOM) UD suspension PO PRN (02:05)
[2018-10-31] MEDS ORDERED: PARO10TA85 PO (02:18)
--- NOTE | 2018-10-31 03:11 | NUR ---
PT HAS SETTLED DOWN AFTER GETTING IV STARTED. WAS FOUND EARLIER NAKED IN ROOM TRYING TO PUT ON "SCRUBS" THAT SHE THOUGHT HER GREEN BACKPACK WAS SCRUBS.
--- NOTE | 2018-10-31 04:25 | NUR ---
PT SETTLED DOWN AND SLEEPING.
--- NOTE | 2018-10-31 06:36 | NUR ---
Assumed care of patient. Patient sleeping in bed, respirations even, no distress noted. Lights dimmed.
[2018-10-31] MEDS: enoxaparin 40mg/0.4ml syringe SUBCUT SCH (08:00)
[2018-10-31] MEDS ORDERED: BUSP15TA14 PO (09:57)
[2018-10-31] MEDS ORDERED: BUPR1FIL5 SL (09:57)
[2018-10-31] MEDS ORDERED: GABA800T11 PO ×2 (09:57)
[2018-10-31] MEDS ORDERED: VALP250C3 PO (09:57)
[2018-10-31] MEDS ORDERED: BUPR1FIL3 SL (09:57)
[2018-10-31] MEDS ORDERED: PRAZ1CAP5 PO (09:57)
[2018-10-31] MEDS ORDERED: CYCL-1 PO (09:57)
[2018-10-31] MEDS ORDERED: ZOLP5TAB8 PO (09:57)
[2018-10-31] MEDS ORDERED: zolpidem 5mg tablet PO PRN (15:50)
[2018-10-31] MEDS: cyclobenzaprine 10mg tablet PO PRN (15:59)
[2018-10-31] MEDS: acetaminophen 325mg tablet PO PRN (16:00)
--- NOTE | 2018-10-31 18:08 | NUR ---
RECEIVED REPORT FROM FRANK QUINTANA AND [facility] Addendum: 10/31/18 at 1828 by Ratna Flanagan RN PER DAY SHIFT PATIENT REFUSING 1800 VS. WILL REATTEMPT TO TAKE THEM.
[2018-10-31] MEDS: albuterol 2.5 MG/3 ML nebule NEB SCH (19:00)
[2018-10-31] MEDS ORDERED: non-formulary drug (Fluticasone/Salmeterol (Advair 250-50 Diskus) 1 PUFFS) INH SCH (20:00)
[2018-10-31] MEDS: BUDESONIDE 0.25 MG/2 ML AMPUL.NEB IH SCH (20:00)
[2018-10-31] MEDS: valproic acid 250mg capsule PO SCH (20:18)
[2018-10-31] MEDS: busPIRone 15mg tablet PO SCH (20:18)
[2018-10-31] MEDS: PARoxetine 10mg tablet PO SCH (20:18)
[2018-10-31] MEDS: lactobacillus rhamnosus 10,000 MMU CELLS/CAPSULE PO SCH (20:18)
[2018-10-31] MEDS ORDERED: prazosin 1mg capsule PO SCH (21:00)
[2018-10-31] MEDS ORDERED: buprenorphine/naloxone 2-0.5mg sublingual tablet SL SCH (21:00)
[2018-10-31] MEDS ORDERED: temazepam 15mg capsule PO PRN (21:00)
[2018-10-31] MEDS ORDERED: gabapentin 400mg capsule PO SCH (21:00)
[2018-10-31 22:00] VITALS: BP 100/55
[2018-10-31] MEDS ORDERED: levoFLOXACIN 750MG TABLET PO SCH (22:00)
[2018-11-01] MEDS: cyclobenzaprine 10mg tablet PO PRN (05:30)
[2018-11-01] MEDS: acetaminophen 325mg tablet PO PRN (05:30)
[2018-11-01 05:57] LABS: BASOPHILS % (AUTO) 0.6 % (0-1); EOSINOPHILS # (AUTO) 0.2 X10'3 (0-0.9); EOSINOPHILS % (AUTO) 2.8 % (0-6); HEMATOCRIT 33.3 % (35.0-45.0); HEMOGLOBIN 11.1 g/dl (12.0-16.0); LYMPHOCYTES # (AUTO) 1.9 X10'3 (1.1-4.8); LYMPHOCYTES % (AUTO) 25.5 % (21-51); MEAN CORPUSCULAR HEMOGLOBIN 29.5 PG (27.0-31.0); MEAN CORPUSCULAR HGB CONC 33.3 g/dL (33.0-36.5); MEAN CORPUSCULAR VOLUME 88.6 FL (78-98); MEAN PLATELET VOLUME 7.2 FL (7.4-10.4); MONOCYTES # (AUTO) 0.4 X10'3 (0-0.9); MONOCYTES % (AUTO) 5.4 % (2-12); NEUTROPHILS % (AUTO) 65.7 % (42-75); PLATELET COUNT 348 X10'3 (140-440); RED BLOOD COUNT 3.75 X10'6 (4.20-5.60); RED CELL DISTRIBUTION WIDTH 15.1 % (11.5-14.5); WHITE BLOOD COUNT 7.6 X10'3 (4.5-11.0)
[2018-11-01 06:00] VITALS: BP 115/56
[2018-11-01 06:15] LABS: ANION GAP 7 (8-16); BLOOD UREA NITROGEN 11 MG/DL (7-18); BUN/CREATININE RATIO 17.5 (6.6-38.0); CALCIUM 8.6 MG/DL (8.5-10.1); CHLORIDE 108 MMOL/L (99-107); CREATININE 0.63 MG/DL (0.40-0.90); GLUCOSE 91 MG/DL (70-104); POTASSIUM 3.8 MMOL/L (3.5-5.1); SODIUM 140 MMOL/L (135-145); TOTAL CARBON DIOXIDE 24.9 MMOL/L (24-32); eGFR > 90 ML/MIN
--- NOTE | 2018-11-01 06:24 | NUR ---
REPORT GIVEN TO LILIAN QUINTANA
[2018-11-01] MEDS ORDERED: buprenorphine/naloxone 2-0.5mg sublingual tablet SL SCH (08:00)
[2018-11-01] MEDS: BUDESONIDE 0.25 MG/2 ML AMPUL.NEB IH SCH (08:19)
[2018-11-01] MEDS: albuterol 2.5 MG/3 ML nebule NEB SCH ×2 (08:20→11:43)
[2018-11-01] MEDS: valproic acid 250mg capsule PO SCH ×2 (08:33→13:30)
[2018-11-01] MEDS: PARoxetine 10mg tablet PO SCH (08:33)
[2018-11-01] MEDS: enoxaparin 40mg/0.4ml syringe SUBCUT SCH (08:33)
[2018-11-01] MEDS: lactobacillus rhamnosus 10,000 MMU CELLS/CAPSULE PO SCH (08:33)
[2018-11-01] MEDS: gabapentin 400mg capsule PO SCH ×2 (08:34→13:30)
[2018-11-01] MEDS: normal saline 1000ml 1,000 ML IV SCH (08:34)
[2018-11-01 10:00] VITALS: BP 109/62
[2018-11-01] MEDS: busPIRone 15mg tablet PO SCH ×2 (10:10→13:30)
[2018-11-01] MEDS ORDERED: LEVO750T21 PO (11:00)
[2018-11-01] MEDS ORDERED: BENZ-16 PO (11:00)
== END 2018-11-01 14:00 | disposition home or self-care (01) | DRG 871 ==
LOC: ER 21:31 → ORTHO 4S 10-31 09:27 → CMPBEDREQ 10-31 19:43
PROVIDERS: ADMIT Hospitalist; ATTEND Hospitalist
DX: A41.9 Sepsis, unspecified organism (principal); J18.1 Lobar pneumonia, unspecified organism; E03.9 Hypothyroidism, unspecified; F11.11 Opioid abuse, in remission; F15.129 Other stimulant abuse with intoxication, unspecified; F12.90 Cannabis use, unspecified, uncomplicated; F32.9 Major depressive disorder, single episode, unspecified; F41.9 Anxiety disorder, unspecified; G43.909 Migraine, unspecified, not intractable, without status migrainosus; G89.29 Other chronic pain; K57.90 Diverticulosis of intestine, part unspecified, without perforation or abscess without bleeding; M54.9 Dorsalgia, unspecified; Z60.2 Problems related to living alone; F17.200 Nicotine dependence, unspecified, uncomplicated; J45.909 Unspecified asthma, uncomplicated; Z56.0 Unemployment, unspecified; Z90.710 Acquired absence of both cervix and uterus; Z79.899 Other long term (current) drug therapy; Z86.14 Personal history of Methicillin resistant Staphylococcus aureus infection; Z87.01 Personal history of pneumonia (recurrent)
CPT/HCPCS: 36415; 71046; 80048; 80053; 83605; 84484; 85025; 87040; 87070; 94640; 94760; 96365; 96372; 99285; G0378; J1650; J1956; J7030

== ENCOUNTER 2019-03-23 08:55 | Emergency (ER) | payer MEDICARE, MEDICAID ==
[~2019-03-23] VITALS: Ht 165.1 cm; Wt 67.0 kg
[~2019-03-23 08:55] MED LIST changes: +BUPR1FIL3 SL; -BUPR1TAB36 SL; -BUSP15TA3 PO; +BUSP15TA8 PO; -NICO-631 TD; +PARO10TA85 PO; -PARO40TA4 PO; +VALP250C3 PO; -VALP250C44 PO
[2019-03-23 10:25] LABS: BASOPHILS % (AUTO) 0.7 % (0-1); EOSINOPHILS # (AUTO) 0.1 X10'3 (0-0.9); HEMATOCRIT 41.5 % (35.0-45.0); HEMOGLOBIN 13.8 g/dl (12.0-16.0); LYMPHOCYTES # (AUTO) 2.1 X10'3 (1.1-4.8); LYMPHOCYTES % (AUTO) 42.9 % (21-51); MEAN CORPUSCULAR HEMOGLOBIN 30.3 PG (27.0-31.0); MEAN CORPUSCULAR HGB CONC 33.3 g/dL (33.0-36.5); MEAN CORPUSCULAR VOLUME 91.2 FL (78-98); MONOCYTES # (AUTO) 0.5 X10'3 (0-0.9); NEUTROPHILS # (AUTO) 2.3 X10'3 (1.8-7.7); NEUTROPHILS % (AUTO) 45.4 % (42-75); PLATELET COUNT 256 X10'3 (140-440); RED BLOOD COUNT 4.55 X10'6 (4.20-5.60)
[2019-03-23 10:48] LABS: CLARITY,URINE CLEAR (Clear); COLOR,URINE YELLOW (Yellow); GLUCOSE, URINE NEGATIVE (Neg); KETONES,URINE NEGATIVE (Neg); LEUKOCYTE ESTERASE ,URINE NEGATIVE (Neg); NITRITES, URINE NEGATIVE (Neg); OCCULT BLOOD,URINE NEGATIVE (Neg); PH,URINE 7.5 (4.8-8.0); PROTEIN,URINE TRACE mg/dl (Neg)
[2019-03-23 10:49] LABS: ALANINE AMINOTRANSFERASE 24 U/L (12-78); ALBUMIN 3.6 G/DL (3.4-5.0); ALKALINE PHOSPHATASE 65 IU/L (46-116); ANION GAP 6 (8-16); ASPARTATE AMINO TRANSFERASE 16 U/L (10-37); BILIRUBIN,TOTAL 0.3 MG/DL (0.1-1.0); BLOOD UREA NITROGEN 17 MG/DL (7-18); BUN/CREATININE RATIO 30.4 (6.6-38.0); CALCIUM 9.1 MG/DL (8.5-10.1); CHLORIDE 108 MMOL/L (99-107); CREATININE 0.56 MG/DL (0.40-0.90); GLUCOSE 74 MG/DL (70-104); POTASSIUM 4.5 MMOL/L (3.5-5.1); SODIUM 143 MMOL/L (135-145); TOTAL CARBON DIOXIDE 29.5 MMOL/L (24-32); TOTAL PROTEIN 7.1 G/DL (6.4-8.2); eGFR > 90 ML/MIN
[2019-03-23 10:55] LABS: UA COLLECTION TYPE CLN CATCH MIDSTREAM
[2019-03-23 10:58] LABS: MUCUS STRANDS NONE SEEN /LPF (Neg); SQUAMOUS EPITHELIAL CELL,UR FEW /LPF (FEW); TRANSITIONAL EPI CELLS,URINE FEW /HPF
[2019-03-23 10:59] LABS: BACTERIA,URINE NONE SEEN /HPF (Neg); RBC,URINE 0-2 /HPF (0-2); WBC,URINE 0-4 /HPF (0-4)
--- NOTE | 2019-03-23 11:05 | NUR ---
Jessica arriaga in ED - 03/23/19 at 1348 by PGALVASHLEY Patient transferred from Main ER Bed 15 to Bed 23 via ambulatory, accompanied by security and ER staff nurse. Made comfortable in bed. Patient [facility] and will be re-evaluated
[2019-03-23 12:27] LABS: ETHANOL < 0.010 GM/DL (0.0-0.010)
[2019-03-23 12:36] LABS: URINE AMPHETAMINE SCREEN POSITIVE (Neg); URINE BARBITUATE SCREEN NEGATIVE (Neg); URINE BENZODIAZEPINES SCREEN NEGATIVE (Neg); URINE CANNABINOID SCREEN NEGATIVE (Neg); URINE COCAINE SCREEN NEGATIVE (Neg); URINE METHADONE SCREEN NEGATIVE (Neg); URINE OPIATE SCREEN NEGATIVE (Neg); URINE PHENCYCLIDINE SCREEN NEGATIVE (Neg)
[2019-03-23] MEDS ORDERED: cyclobenzaprine 10mg tablet PO PRN (13:30)
[2019-03-23] MEDS ORDERED: valproic acid 250mg capsule PO ONE (13:30)
[2019-03-23] MEDS ORDERED: zolpidem 5mg tablet PO PRN (13:30)
[2019-03-23] MEDS ORDERED: PARoxetine 10mg tablet PO ONE (13:35)
[2019-03-23] MEDS ORDERED: gabapentin 400mg capsule PO ONE (13:35)
--- NOTE | 2019-03-23 13:49 | NUR ---
Patient transferred from Main ER Bed 15 to Bed 23 via ambulatory, accompanied by security and ER staff nurse. Made comfortable in bed. [facility] to the [facility] July of this year. Current reason for admission is suicidal ideation.
--- NOTE | 2019-03-23 16:09 | NUR ---
Pt was pleasant and cooperative and ate a late lunch and took medications w/o issue. She was evaluated by [facility] and became verbally agressive. [facility] placed Pt on a 5150. She talked about [facility] being a good place but the younger women did not treat her well. She misses her son who and wants her dog. "I can't do this anymore"
--- NOTE | 2019-03-23 19:15 | NUR ---
Patient was sleeping at shift change. This public relations writer awoke patient for her dinner. This patient is soft spoken, normal rate and rhythm. The patient admits to major depression. Her affect is flat, she admits to S/I without a plan. Patient denies H/I or hallucinations. Patient denies any support mechanism. The patient is cooperative with this public relations writer. She did eat all of her dinner. The patient is advised that she is in a safe place. Patients bed is in direct view from the nurses station.
[2019-03-23] MEDS ORDERED: PARoxetine 10mg tablet PO SCH (20:00)
[2019-03-23] MEDS ORDERED: buprenorphine/naloxone 8MG-2MG SUBlingual film SL SCH (21:00)
[2019-03-23] MEDS ORDERED: valproic acid 250mg capsule PO SCH (21:00)
[2019-03-23] MEDS ORDERED: busPIRone 15mg tablet PO SCH (21:00)
[2019-03-23] MEDS ORDERED: prazosin 1mg capsule PO SCH (21:00)
[2019-03-23] MEDS ORDERED: gabapentin 400mg capsule PO SCH (21:00)
--- NOTE | 2019-03-24 00:14 | NUR ---
Patient was sleeping. Now awake she requests apple sauce and crackers, both were given. Mariam Henry RN from [facility] has called. They will be taking this patient upstairs shortly. This patient is well oriented at this time. She is cooperative with staff and medication compliant.
--- NOTE | 2019-03-24 01:24 | NUR ---
Patient is discharged from ED and admitted to [facility].
[2019-03-24 01:26] VITALS: BP 144/76
[2019-03-24] MEDS ORDERED: gabapentin 400mg capsule PO SCH (07:30)
== END 2019-03-24 01:30 ==
LOC: ER 08:55
DX: R45.851 Suicidal ideations (principal); G43.909 Migraine, unspecified, not intractable, without status migrainosus; J45.909 Unspecified asthma, uncomplicated; E07.9 Disorder of thyroid, unspecified; G89.29 Other chronic pain; F41.9 Anxiety disorder, unspecified; F32.9 Major depressive disorder, single episode, unspecified; F12.90 Cannabis use, unspecified, uncomplicated; F15.90 Other stimulant use, unspecified, uncomplicated; F11.90 Opioid use, unspecified, uncomplicated; Z56.0 Unemployment, unspecified; Z88.1 Allergy status to other antibiotic agents; Z88.8 Allergy status to other drugs, medicaments and biological substances; Z86.14 Personal history of Methicillin resistant Staphylococcus aureus infection; Z90.710 Acquired absence of both cervix and uterus; Z98.890 Other specified postprocedural states; Z79.899 Other long term (current) drug therapy
CPT/HCPCS: 36415; 80053; 80305; 80320; 81001; 85025; 85610; 99285

== ENCOUNTER 2019-03-23 23:50 | Inpatient (IN) | payer MEDICARE, MEDICAID ==
[~2019-03-23] VITALS: Ht 165.1 cm; Wt 69.9 kg
[2019-03-24 01:43] VITALS: BP 103/56
[2019-03-24] MEDS ORDERED: mag hydrox/Alum hydrox/simeth 30ml oral suspension PO PRN (01:55)
[2019-03-24] MEDS ORDERED: magnesium hydroxide 30ml (MOM) UD suspension PO PRN (01:55)
[2019-03-24] MEDS ORDERED: diphenoxylate/atropine tablet (Lomotil) PO PRN (01:55)
[2019-03-24] MEDS ORDERED: acetaminophen 325mg tablet PO PRN (01:55)
[2019-03-24] MEDS: acetaminophen 325mg tablet PO PRN (02:10)
--- NOTE | 2019-03-24 04:57 | NUR ---
MANAGER AUDIO NOTE: LEGAL HOLD: 5150 for DTS. Hx Depression/Anxiety/PTSD/Substance use DO. THIS SHIFT: Client from ED arrived at 01:30 in a wheelchair accompanied by TOMAS Villalba. Client was last admitted to the unit in July 2018 for suicidal ideation. Client reported that she has become increasingly depressed and has thought about overdosing and cutting "an artery in my leg". Client received a [employer] housing voucher and did not submit the appropriate paperwork on time (due 03/14/19) and is concerned she lost HUD housing. Client ran out of suboxone. Client then smoked Heroin for approximately a week. Client was cooperative with admission. Personal belongings were inventoried. Clients affect and mood are depressed.
[2019-03-24] MEDS: valproic acid 250mg capsule PO SCH ×3 (07:44→21:06)
[2019-03-24] MEDS: busPIRone 15mg tablet PO SCH ×3 (07:44→21:06)
[2019-03-24] MEDS: gabapentin 400mg capsule PO SCH ×3 (07:44→21:07)
[2019-03-24 08:00] VITALS: BP 118/60
[2019-03-24] MEDS ORDERED: PARoxetine 10mg tablet PO SCH (08:00)
[2019-03-24 08:23] LABS: CHOL/HDL RATIO 3.9 (0.00-4.99); CHOLESTEROL 149 MG/DL (0-200); HDL CHOLESTEROL 38 MG/DL (35-60); LDL CHOLESTEROL 80 MG/DL (50-100); TRIGLYCERIDES 259 MG/DL (20-135)
[2019-03-24] MEDS ORDERED: tuberculin, purif. prot. deriv. 5 units/0.1ml ID ONE (10:00)
[2019-03-24 12:09] LABS: HEMOGLOBIN A1C 5.3 % (4.5-6.2)
[2019-03-24] MEDS ORDERED: buprenorphine/naloxone 2-0.5mg sublingual tablet SL ONE ×2 (13:50→21:00)
--- NOTE | 2019-03-24 14:46 | NUR ---
Nursing Progress Note:[] Legal hold:[] Client on voluntary/involuntary status for GD/DTS/DTO[]. Report received from nurse with use of SBAR[]. Why are they here:[]. Assessment What has happened this shift:[] S/I, H/I:[] A/VH: [] Sleep:[] ADL's:[] Group attendance:[] Were meds taken:[] Any med S/E[] Mental Status Exam Appearance:[] Eye contact:[] Behavior:[] Speech:[] Mood:[] Affect:[] Thought process:[] Thought Content:[] Cognition:[] Insight:[] Judgment:[] Interventions PRN's used:[] Therapeutic interventions:[] Restraints/seclusion/emergency medication:[] Justification of Continued Inpatient Treatment:[] Addendum: 03/24/19 at 1447 by Arminda Villa RN (Lee) PLEASE DISREGARD PREVIOUS NOTE, SAVED IN ERROR BEFORE COMPLETED
--- NOTE | 2019-03-24 14:47 | NUR ---
Nursing Progress Note: Legal hold: 5150 Client on voluntary/involuntary status for DTS Report received from nurse with use of Mariam PALUMBO RN Why are they here: Pt has a history of chronic pain she states is due to a Hx of childhood Polio, she is opioid dependent. Pt ran out of her Suboxone so resorted to smoking heroin for a week. During that time period she was supposed to turn in [employer] paperwork, she did not so, so may have lost her voucher. Pt became suicidal with thoughts of overdosing or cutting an artery in her leg. Urine tox screen + for amphetamines. Assessment What has happened this shift: When asked about her depression today, pt stated, "It's there." She was unable/unwilling to give it a number on a 1 to 10 scale, pt denied SI. Pt stated, "I'm just so tired, I just need to rest." Pt c/o 8/10 back pain this morning, refused prn Tylenol. At around 1315, pt adamant that Dr Puente had indicated that he was going to increase her Suboxone to twice daily, wanted this RN to call him immediately so she could get another dose of Suboxone. Dr Puente returned and pt's concerns addressed. Dr Puente ordered a one time dose of Suboxone 4 mg given at 1410. Plan to increase to 8mg BID for tomorrow. S/I, H/I: Pt denies A/VH: Pt denies Sleep: Pt admitted around 0200 last night, got 2.5 hours sleep per noc shift report, napped for much of the day, up for meals. ADL's: Independent Group attendance: No Were meds taken: Yes Any med S/E: None noted or reported Mental Status Exam Appearance: Disheveled, dressed in hospital scrubs, appears fatigued Eye contact: Fair Behavior: isolative, withdrawn, agitated when did not get morning Suboxone dose as she expected. Speech: clear, audible Mood: depressed, irritable Affect: depressed, fatigued Thought process: Linear Thought Content: Suboxone, getting her 8 mg BID, she just needs to rest Cognition: A/O X 4 Insight: Poor Judgment: Poor Interventions PRN's used: none Therapeutic interventions: 1:1 assessment, establishment of rapport, medication administration/eduction/monitoring, encouragement to perform personal hygiene and attend groups, Q 15 min safety checks. Restraints/seclusion/emergency medication: N/A Justification of Continued Inpatient Treatment: Pt is depressed, she was using Heroin and suicidal, she is homeless. She needs medication adjustment and monitoring in a safe, therapeutic environment, she needs placement.
[2019-03-24 20:00] VITALS: BP 133/78
[2019-03-24] MEDS ORDERED: buprenorphine/naloxone 8MG-2MG SUBlingual film SL SCH (21:00)
[2019-03-24] MEDS: prazosin 1mg capsule PO SCH (21:07)
[2019-03-24] MEDS: cyclobenzaprine 10mg tablet PO PRN (21:07)
[2019-03-24] MEDS: zolpidem 5mg tablet PO PRN (21:07)
--- NOTE | 2019-03-25 01:07 | NUR ---
Nursing Progress Note: Legal hold: 5150 Client on involuntary status for DTS Report received from nurse with use of SBAR: LILIAN Sainz Why are they here: Pt has a history of chronic pain she states is due to a Hx of childhood Polio, she is opioid dependent. Pt ran out of her Suboxone so resorted to smoking heroin for a week. During that time period she was supposed to turn in [employer] paperwork, she did not so, so may have lost her voucher. Pt became suicidal with thoughts of overdosing or cutting an artery in her leg. Urine tox screen + for amphetamines. She reports she has been feeling this way for a few months and off of her medications X2 weeks. Assessment What has happened this shift: Pt. in bed sleeping at the beginning of the shift, and remains here throughout most the shift until snack time. 1:1 completed at bedside, pt. presents as cooperative, fatigued, and withdrawn, however is pleasant and very thankful to staff for care provided. When this content writer questioned pt. in regard to S/I, she did not directly answer the question, however stated, "I'm a little better, I'm just so tired." Pt. goes on to talk about how living at the [place] was hard because she felt like she had to be on her guard all of the time. Then she ran out of her Suboxone and turned to drugs, states, "I just got lost." Pt. admits that she spent most of the day in bed today and did not go to groups, but she plans to participate more tomorrow. She reports goals of getting her own place to live via HUD and getting her dog back, states, "I just need something to look forward to." Pt. requests PRN Ambien for sleep, and Flexeril at for chronic pain, administered with effectiveness. S/I, H/I: Passive S/I A/VH: Denies Sleep: Pt. requests PRN Ambien at HS, appears effective ADL's: Needs encouragement Group attendance: Reports did not go to groups today, but she plans to participate more tomorrow. Were meds taken: Yes Any med S/E: None Mental Status Exam Appearance: Neat and appropriately dressed Eye contact: Good Behavior: Cooperative, fatigued, and withdrawn Speech: WNL Mood: Pleasant Affect: Blunted Thought process: Liner Thought Content: Preoccupation with depressed mood and hopelessness Cognition: A&O X4 Insight: Fair Judgment: Poor to fair Interventions PRN's used: Ambien and Migueleril X1 Therapeutic interventions: Ensured contract for safety, maintained a safe and therapeutic environment, monitored behavior and need for intervention, provided positive encouragement to perform ADLs, and maintained Q 15 min safety checks. Restraints/seclusion/emergency medication: N/A Justification of Continued Inpatient Treatment: Pt. requires interruption of current crisis, medication adjustments, and a safe and supportive environment.
[2019-03-25] MEDS: PARoxetine 10mg tablet PO SCH (07:55)
[2019-03-25] MEDS: busPIRone 15mg tablet PO SCH ×3 (07:55→20:35)
[2019-03-25] MEDS: gabapentin 400mg capsule PO SCH ×3 (07:55→20:35)
[2019-03-25] MEDS: buprenorphine/naloxone 8MG-2MG SUBlingual film SL SCH ×2 (07:56→20:36)
[2019-03-25] MEDS: valproic acid 250mg capsule PO SCH ×3 (07:56→20:32)
[2019-03-25 08:00] VITALS: BP 110/65
[2019-03-25] MEDS: acetaminophen 325mg tablet PO PRN (09:27)
[2019-03-25] MEDS: cyclobenzaprine 10mg tablet PO PRN (09:27)
--- NOTE | 2019-03-25 14:54 | NUR ---
Nursing Progress Note: Legal hold: 5150 Client on involuntary status for DTS Report received from nurse with use of SBAR: LILIAN Dickinson Why are they here: Pt has a history of chronic pain she states is due to a Hx of childhood Polio, she is opioid dependent. Pt ran out of her Suboxone so resorted to smoking heroin for a week. During that time period she was supposed to turn in [employer] paperwork, she did not so, so may have lost her voucher. Pt became suicidal with thoughts of overdosing or cutting an artery in her leg. Urine tox screen + for amphetamines. She reports she has been feeling this way for a few months and off of her medications X2 weeks. Assessment What has happened this shift: Patient was awake in community room at initial introduction. Was open and willing to discuss actions which led her to be admitting to unit. Initially places blame on PMD for not refilling her medications on time, then states she needs to accept what she did was wrong. Verbalized she remains suicidal with plan to drink a lot of alcohol and cut the artery in her groin. Met with Dr. Puente in her room, and was tearful. Verbalized how she misses her daughter who she hasn't been in contact with for awhile. Also [facility], "you cant trust anyone and there is always something going on." Spent most of her day in her room isolating. Remained pleasant during any communication. S/I, H/I: Passive S/I A/VH: Denies Sleep: 8.25 ADL's: Needs encouragement Group attendance: No Were meds taken: Yes Any med S/E: None Mental Status Exam Appearance: Neat and appropriately dressed Eye contact: Good Behavior: Cooperative, fatigued, and withdrawn Speech: WNL Mood: Pleasant Affect: Blunted Thought process: Liner Thought Content: focused on behaviors of substance abuse and losing housing Cognition: A&O X4 Insight: Fair Judgment: Poor to fair Interventions PRN's used: tylenol, Flexeril Therapeutic interventions: Ensured contract for safety, maintained a safe and therapeutic environment, monitored behavior and need for intervention, provided positive encouragement to perform ADLs, and maintained Q 15 min safety checks. Restraints/seclusion/emergency medication: N/A Justification of Continued Inpatient Treatment: Pt. requires interruption of current crisis, medication adjustments, and a safe and supportive environment.
[2019-03-25 19:00] VITALS: BP 129/70
[2019-03-25] MEDS: prazosin 1mg capsule PO SCH (20:34)
[2019-03-25] MEDS: zolpidem 5mg tablet PO PRN (22:39)
--- NOTE | 2019-03-25 23:17 | NUR ---
Nursing Progress Note: Legal hold: 5150 Client on involuntary status for DTS Report received from nurse with use of SBAR: LILIAN Sainz Why are they here: Pt has a history of chronic pain she states is due to a Hx of childhood Polio, she is opioid dependent. Pt ran out of her Suboxone so resorted to smoking heroin for a week. During that time period she was supposed to turn in [employer] paperwork, she did not so, so may have lost her voucher. Pt became suicidal with thoughts of overdosing or cutting an artery in her leg. Urine tox screen + for amphetamines. She reports she has been feeling this way for a few months and off of her medications X2 weeks. Assessment What has happened this shift: Patient was asleep in her room at initial introduction. Was open and willing to discuss actions which led her to be admitting to unit. Initially places blame on PMD for not refilling her medications on time, then states she needs to accept what she did was wrong. Patient states she remains suicidal with plan to drink a lot of alcohol and cut the artery in her groin but those thoughts are improving. Spent most of her day in her room isolating. Remained pleasant during any communication. S/I, H/I: Passive S/I A/VH: Denies Sleep: 8.25 ADL's: Needs encouragement Group attendance: No Were meds taken: Yes Any med S/E: None Mental Status Exam Appearance: Neat and appropriately dressed Eye contact: Good Behavior: Cooperative, fatigued, and withdrawn Speech: WNL Mood: Pleasant Affect: Blunted Thought process: Liner Thought Content: focused on behaviors of substance abuse and losing housing Cognition: A&O X4 Insight: Fair Judgment: Poor to fair Interventions PRN's used: tylenol, Flexeril Therapeutic interventions: Ensured contract for safety, maintained a safe and therapeutic environment, monitored behavior and need for intervention, provided positive encouragement to perform ADLs, and maintained Q 15 min safety checks. Restraints/seclusion/emergency medication: N/A Justification of Continued Inpatient Treatment: Pt. requires interruption of current crisis, medication adjustments, and a safe and supportive environment.
[2019-03-26] MEDS: cyclobenzaprine 10mg tablet PO PRN ×2 (04:28→12:48)
[2019-03-26] MEDS: acetaminophen 325mg tablet PO PRN ×2 (04:29→12:03)
[2019-03-26 07:30] VITALS: BP 106/70
[2019-03-26] MEDS: buprenorphine/naloxone 8MG-2MG SUBlingual film SL SCH ×2 (07:41→21:01)
[2019-03-26] MEDS: valproic acid 250mg capsule PO SCH ×3 (07:41→21:00)
[2019-03-26] MEDS: PARoxetine 10mg tablet PO SCH (07:41)
[2019-03-26] MEDS: busPIRone 15mg tablet PO SCH ×3 (07:41→21:00)
[2019-03-26] MEDS: gabapentin 400mg capsule PO SCH ×3 (07:41→21:01)
--- NOTE | 2019-03-26 15:09 | NUR ---
Nursing Progress Note: Vielka Legal hold: 5150 Client on involuntary status for DTS Report received from THANG Dickinson with use of SBAR: Why are they here: Pt has a history of chronic pain she states is due to a Hx of childhood Polio, she is opioid dependent. Pt ran out of her Suboxone so resorted to smoking heroin for a week. During that time period she was supposed to turn in [employer] paperwork, she did not so, so may have lost her voucher. Pt became suicidal with thoughts of overdosing or cutting an artery in her leg. Urine tox screen + for amphetamines. She reports she has been feeling this way for a few months and off of her medications X2 weeks. Assessment What has happened this shift: Patient up in community room drinking hot chocolate. She appears sad, when asked how she is feeling, she get tearful "I dont want to talk about anything now, there is too much to deal with early in the morning" referring to her chronic pain. Patient isolating and withdrawn returning to her room most of day. This radio script writer was unable to engage in any meaningful conversation with patient. Was out of room only for meals and snacks. S/I, H/I: Passive S/I A/VH: Denies Sleep: 10.25 ADL's: Needs encouragement Group attendance: No Were meds taken: Yes Any med S/E: None Mental Status Exam Appearance: Neat and appropriately dressed Eye contact: Good Behavior: Cooperative, fatigued, and withdrawn Speech: WNL Mood: Pleasant Affect: Blunted Thought process: Liner Thought Content: focused on behaviors of substance abuse and losing housing Cognition: A&O X4 Insight: Fair Judgment: Poor to fair Interventions PRN's used: Flexeril, Tylenol Therapeutic interventions: Ensured contract for safety, maintained a safe and therapeutic environment, monitored behavior and need for intervention, provided positive encouragement to perform ADLs, and maintained Q 15 min safety checks. Restraints/seclusion/emergency medication: N/A Justification of Continued Inpatient Treatment: Pt. requires interruption of current crisis, medication adjustments, and a safe and supportive environment.
--- NOTE | 2019-03-26 19:21 | NUR ---
Pt was laying in bed at change of shift. Reports no longer feeling suicidal, but did have a plan to cut her femoral artery with a "tile razor". States she no longer has the tile razor, reports she continues to feel depressed. Did not have a BM today, is not feeling constipated.
[2019-03-26 19:54] VITALS: BP 118/56
[2019-03-26] MEDS: prazosin 1mg capsule PO SCH (21:00)
--- NOTE | 2019-03-27 00:14 | NUR ---
Nursing Progress Note: Vielka Legal hold: 5150 Client on involuntary status for DTS Report received from HTANG Sainz with use of SBAR: Why are they here: Pt has a history of chronic pain she states is due to a Hx of childhood Polio, she is opioid dependent. Pt ran out of her Suboxone so resorted to smoking heroin for a week. During that time period she was supposed to turn in [employer] paperwork, she did not so, so may have lost her voucher. Pt became suicidal with thoughts of overdosing or cutting an artery in her leg. Urine tox screen + for amphetamines. She reports she has been feeling this way for a few months and off of her medications X2 weeks. Assessment What has happened this shift: Patient up in community room . She appears downcast and when asked how she is feeling, she get tearful "I dont want to talk about anything now, Patient isolating and withdrawn returning to her room most of shift. She was med compliant and stated that is thankful for the help she is getting. S/I, H/I: Passive S/I A/VH: Denies Sleep: 10.25 ADL's: Needs encouragement Group attendance: No Were meds taken: Yes Any med S/E: None Mental Status Exam Appearance: Neat and appropriately dressed Eye contact: Good Behavior: Cooperative, fatigued, and withdrawn Speech: WNL Mood: Pleasant Affect: Blunted Thought process: Liner Thought Content: focused on behaviors of substance abuse and losing housing Cognition: A&O X4 Insight: Fair Judgment: Poor to fair Interventions PRN's used: Flexeril, Tylenol Therapeutic interventions: Ensured contract for safety, maintained a safe and therapeutic environment, monitored behavior and need for intervention, provided positive encouragement to perform ADLs, and maintained Q 15 min safety checks. Restraints/seclusion/emergency medication: N/A Justification of Continued Inpatient Treatment: Pt. requires interruption of current crisis, medication adjustments, and a safe and supportive environment.
[2019-03-27] MEDS: gabapentin 400mg capsule PO SCH ×3 (08:06→20:22)
[2019-03-27] MEDS: valproic acid 250mg capsule PO SCH ×3 (08:06→20:22)
[2019-03-27] MEDS: buprenorphine/naloxone 8MG-2MG SUBlingual film SL SCH ×2 (08:06→20:22)
[2019-03-27] MEDS: PARoxetine 20mg tablet PO SCH (08:06)
[2019-03-27] MEDS: busPIRone 15mg tablet PO SCH ×3 (08:06→20:22)
[2019-03-27 08:14] VITALS: BP 119/69
[2019-03-27] MEDS: cyclobenzaprine 10mg tablet PO PRN (08:16)
--- NOTE | 2019-03-27 11:27 | NUR ---
[facility] REFERRAL: SW completed [facility] referral for pt. Vargas, Sweep Molder, interviewed pt and agreed to accept her pending packet. Lety Payne, Pre Press Manager [employer] [id number] Supervised by Stuart Batista, [id number]
--- NOTE | 2019-03-27 17:24 | NUR ---
Nursing Progress Note: Vielka Legal hold: 5150 Client on involuntary status for DTS Report received from HTANG Egan with use of SBAR: Why are they here: Pt has a history of chronic pain she states is due to a Hx of childhood Polio, she is opioid dependent. Pt ran out of her Suboxone so resorted to smoking heroin for a week. During that time period she was supposed to turn in [employer] paperwork, she did not so, so may have lost her voucher. Pt became suicidal with thoughts of overdosing or cutting an artery in her leg. Urine tox screen + for amphetamines. She reports she has been feeling this way for a few months and off of her medications X2 weeks. Assessment What has happened this shift: Pt awoke this morning in some pain and was given flexeril with her morning medications. Pt had sad/depressed affect and later in the morning opened up to the staff. Pt was crying and stating that she just didn't want to go on anymore and said over and over, "I want to go home to the Lord" Pt stated she did not currently have a plan for suicide, but that she wanted to . Pt asked for nurse to pray with her. After the prayer, pt mood brightened and she stated she felft some peace come upon her. Pt did not attend group and spent most of her free time lying on her bed. Pt did allow assessment by therapist. S/I, H/I: Passive S/I A/VH: Denies Sleep: brief naps ADL's: Needs encouragement Group attendance: No Were meds taken: Yes Any med S/E: None Mental Status Exam Appearance: Neat and appropriately dressed Eye contact: Good Behavior: Cooperative, fatigued, and withdrawn Speech: WNL Mood: labile Affect: Blunted Thought process: Liner Thought Content: focused on behaviors of substance abuse and losing housing Cognition: A&O X4 Insight: Fair Judgment: Poor to fair Interventions PRN's used: Flexeril Therapeutic interventions: Ensured contract for safety, maintained a safe and therapeutic environment, monitored behavior and need for intervention, provided positive encouragement to perform ADLs, and maintained Q 15 min safety checks. Restraints/seclusion/emergency medication: N/A Justification of Continued Inpatient Treatment: Pt. requires interruption of current crisis, medication adjustments, and a safe and supportive environment.
[2019-03-27] MEDS: hydrOXYzine 25 MG tablet PO PRN (19:32)
[2019-03-27] MEDS: prazosin 1mg capsule PO SCH (20:22)
[2019-03-27] MEDS: zolpidem 5mg tablet PO PRN (20:23)
[2019-03-27 20:56] VITALS: BP 125/70
--- NOTE | 2019-03-27 23:21 | NUR ---
Nursing Progress Note: Legal hold: 5150 Client on involuntary status for DTS Report received from Alistair Why are they here: Pt has a history of chronic pain she states is due to a Hx of childhood Polio, she is opioid dependent. Pt ran out of her Suboxone so resorted to smoking heroin for a week. During that time period she was supposed to turn in [employer] paperwork, she did not so, so may have lost her voucher. Pt became suicidal with thoughts of overdosing or cutting an artery in her leg. Urine tox screen + for amphetamines. She reports she has been feeling this way for a few months and off of her medications X2 weeks. Assessment What has happened this shift: Pt was laying in her bed at change of shift. 1:1 assessment completed at bedside. Pt explains she had rough start to her day but she is doing better now. She states she is feeling like she is "coming out of the depression." Pt states she thinks she will be here another week, and plans to go to the [facility] from here. Pt reports sleeping ok last night and appetite is good. Pt is pleasant and thanks me several times saying that she is thankful for being here and all of the staff have been very helpful. S/I, H/I: Passive S/I A/VH: Denies Sleep: sleeping good at night ADL's: Needs encouragement Group attendance: No Were meds taken: Yes Any med S/E: None Mental Status Exam Appearance: Neat and appropriately dressed Eye contact: Good Behavior: Cooperative, withdrawn Speech: WNL Mood: labile Affect: Blunted Thought process: Liner Thought Content: talking about when she will leave and thankfulness. Cognition: A&O X4 Insight: Fair Judgment: Poor to fair Interventions PRN's used: atarax Therapeutic interventions: Ensured contract for safety, maintained a safe and therapeutic environment, monitored behavior and need for intervention, provided positive encouragement to perform ADLs, and maintained Q 15 min safety checks. Restraints/seclusion/emergency medication: N/A Justification of Continued Inpatient Treatment: Pt. requires interruption of current crisis, medication adjustments, and a safe and supportive environment.
[2019-03-28 07:47] VITALS: BP 107/56
[2019-03-28] MEDS: buprenorphine/naloxone 8MG-2MG SUBlingual film SL SCH ×2 (08:00→20:10)
[2019-03-28] MEDS: gabapentin 400mg capsule PO SCH ×3 (08:00→20:15)
[2019-03-28] MEDS: cyclobenzaprine 10mg tablet PO PRN ×2 (08:00→21:12)
[2019-03-28] MEDS: valproic acid 250mg capsule PO SCH ×3 (08:00→20:10)
[2019-03-28] MEDS: PARoxetine 20mg tablet PO SCH (08:00)
[2019-03-28] MEDS: busPIRone 15mg tablet PO SCH ×3 (08:00→20:10)
--- NOTE | 2019-03-28 12:28 | NUR ---
Good appetite, eating 75-100% average of regular meals. Meeting nutrition needs. Recommend: 1. continue regular diet 2. weekly wts Addendum: 03/28/19 at [address] Amended: Links added.
--- NOTE | 2019-03-28 17:14 | NUR ---
Nursing Progress Note: Vielka Legal hold: 5150 Client on involuntary status for DTS Report received from THANG Santiago with use of SBAR: Why are they here: Pt has a history of chronic pain she states is due to a Hx of childhood Polio, she is opioid dependent. Pt ran out of her Suboxone so resorted to smoking heroin for a week. During that time period she was supposed to turn in [employer] paperwork, she did not so, so may have lost her voucher. Pt became suicidal with thoughts of overdosing or cutting an artery in her leg. Urine tox screen + for amphetamines. She reports she has been feeling this way for a few months and off of her medications X2 weeks. Assessment What has happened this shift: Pt up and visible on the unit. Pt affect blunted today and she stated she had begun to feel depressed again this am, but stated her mood seemed to brighted after lunch when she thought about "[employer]". Pt did attend groups and participated. Pt denied suicidal thoughts and did not make suicidal comments today. Pt denies a/v hallucinations. S/I, H/I: Passive S/I A/VH: Denies Sleep: brief naps ADL's: Needs encouragement Group attendance: yes Were meds taken: Yes Any med S/E: None Mental Status Exam Appearance: Neat and appropriately dressed Eye contact: Good Behavior: Cooperative, fatigued, and withdrawn Speech: WNL Mood: labile Affect: Blunted Thought process: Liner Thought Content: focused on behaviors of substance abuse and losing housing Cognition: A&O X4 Insight: Fair Judgment: Poor to fair Interventions PRN's used: Flexeril Therapeutic interventions: Ensured contract for safety, maintained a safe and therapeutic environment, monitored behavior and need for intervention, provided positive encouragement to perform ADLs, and maintained Q 15 min safety checks. Restraints/seclusion/emergency medication: N/A Justification of Continued Inpatient Treatment: Pt. requires interruption of current crisis, medication adjustments, and a safe and supportive environment.
[2019-03-28 19:58] VITALS: BP 118/77
[2019-03-28] MEDS: zolpidem 5mg tablet PO PRN (20:10)
[2019-03-28] MEDS: prazosin 1mg capsule PO SCH (20:10)
--- NOTE | 2019-03-29 00:46 | NUR ---
Nursing Progress Note: Vielka Legal hold: 5150 Client on involuntary status for DTS Report received from THANG Sainz with use of SBAR: Why are they here: Pt has a history of chronic pain she states is due to a Hx of childhood Polio, she is opioid dependent. Pt ran out of her Suboxone so resorted to smoking heroin for a week. During that time period she was supposed to turn in [employer] paperwork, she did not so, so may have lost her voucher. Pt became suicidal with thoughts of overdosing or cutting an artery in her leg. Urine tox screen + for amphetamines. She reports she has been feeling this way for a few months and off of her medications X2 weeks. Assessment What has happened this shift: Pt was in her room at change of shift. She states she is feeling better denies s/i but continues to have bouts of depression. She states she "feels good about the direction im going" She c/o 7/10 pain in her back and hips. Pt is calm, pleasant cooperative. Spent some of the evening in group room watching tv. Appetite is good, she wakes often and sits up during the night. S/I, H/I: Passive S/I A/VH: Denies Sleep: brief naps wakes during the night often ADL's: Needs encouragement Group attendance: yes Were meds taken: Yes Any med S/E: None Mental Status Exam Appearance: adequately groomed and appropriately dressed Eye contact: Good Behavior: Cooperative, fatigued, and withdrawn Speech: WNL Mood: labile Affect: Blunted Thought process: Liner Thought Content: discharge to [facility], medication adjustments Cognition: A&O X4 Insight: Fair Judgment: Poor to fair Interventions PRN's used: Flexeril Therapeutic interventions: Ensured contract for safety, maintained a safe and therapeutic environment, monitored behavior and need for intervention, provided positive encouragement to perform ADLs, and maintained Q 15 min safety checks. Restraints/seclusion/emergency medication: N/A Justification of Continued Inpatient Treatment: Pt. requires interruption of current crisis, medication adjustments, and a safe and supportive environment.
[2019-03-29] MEDS: busPIRone 15mg tablet PO SCH ×3 (07:29→21:04)
[2019-03-29] MEDS: PARoxetine 20mg tablet PO SCH (07:29)
[2019-03-29] MEDS: buprenorphine/naloxone 8MG-2MG SUBlingual film SL SCH ×2 (07:29→21:04)
[2019-03-29] MEDS: gabapentin 400mg capsule PO SCH ×3 (07:29→22:45)
[2019-03-29] MEDS: valproic acid 250mg capsule PO SCH ×3 (07:30→21:04)
[2019-03-29] MEDS: cyclobenzaprine 10mg tablet PO PRN (07:56)
[2019-03-29 08:24] VITALS: BP 118/66
--- NOTE | 2019-03-29 13:22 | NUR ---
Nursing Progress Note: Vielka Legal hold: 5150 Client on involuntary status for DTS Report received from Pamela DESIR Why are they here: Pt has a history of chronic pain she states is due to a Hx of childhood Polio, she is opioid dependent. Pt ran out of her Suboxone so resorted to smoking heroin for a week. During that time period she was supposed to turn in [employer] paperwork, she did not so, so may have lost her voucher. Pt became suicidal with thoughts of overdosing or cutting an artery in her leg. Urine tox screen + for amphetamines. She reports she has been feeling this way for a few months and off of her medications X2 weeks. Assessment What has happened this shift: Pt was in her room at change of shift resting with eyes closed and respirations were even and unlabored. No apparent or immediate issues identified. Client was amicable to am meds and assessment. Client requested and received prn of Flexeril per orders for c/o generalzed pain and muscle spasms. Visible on unit and social with both staff as well as peers. Client states that she feels, "tired" and just wants to rest. No behavioral issues noted as of this writing. S/I, H/I: Passive S/I A/VH: Denies Sleep: ADL's: Needs encouragement Group attendance: Were meds taken: Yes Any med S/E: None Mental Status Exam Appearance: adequately groomed and appropriately dressed Eye contact: Good Behavior: Cooperative, fatigued, and withdrawn Speech: WNL Mood: labile Affect: Blunted Thought process: Linear Thought Content: discharge to [facility], medication adjustments Cognition: A&O X4 Insight: Fair Judgment: Poor to fair Interventions PRN's used: Flexeril Therapeutic interventions: Ensured contract for safety, maintained a safe and therapeutic environment, monitored behavior and need for intervention, provided positive encouragement to perform ADLs, and maintained Q 15 min safety checks. Restraints/seclusion/emergency medication: N/A Justification of Continued Inpatient Treatment: Pt. requires interruption of current crisis, medication adjustments, and a safe and supportive environment.
--- NOTE | 2019-03-29 16:22 | NUR ---
Nursing Note: After client took a shower, it was noted by advertising writer that client has what appears to be fungal lesions on dorsum of both feet. It also appears as though nail beds may be involved. Feet appear dry, cracked and seem to irritate her with the itch. Zion Gimenez was informed and a new order for Miconazole cream to be applied TID was issued.
[2019-03-29 20:00] VITALS: BP 115/58
[2019-03-29] MEDS: miconazole nitrate 28.35 gm derm cream TP SCH (21:00)
[2019-03-29] MEDS: zolpidem 5mg tablet PO SCH (21:04)
[2019-03-29] MEDS: prazosin 1mg capsule PO SCH (21:04)
--- NOTE | 2019-03-30 00:56 | NUR ---
Progress Note: Legal hold: 5250 Client on involuntary status for DTS Report received from LILIAN Patterson Why are they here: Patient has a history of chronic pain she states is due to a Hx of childhood Polio, she is opioid dependent. Patient ran out of her Suboxone so resorted to smoking heroin for a week. During that time period she was supposed to turn in [employer] paperwork, she did not so, so may have lost her voucher. Patient became suicidal with thoughts of overdosing or cutting an artery in her leg. Urine tox screen + for amphetamines. She reports she has been feeling this way for a few months and off of her medications X2 weeks. Assessment What has happened this shift: Patient is in her room at change of shift. Patient isolates to her room and herself this shift. She is cooperative for a 1:1 assessment at her bedside. She denies SI/HI, AH/VH this shift but does report depression 01/25. She states she feels she has seen improvement in her depression since being on the unit. She speaks of the future and her excitement to go to [facility] and work their program. Stating "I've been there before, I really liked it and everything they helped me with, I hope it will be like that again." Miconazole nitrate is applied bilaterally to both feet as ordered. She is compliant with HS medications. S/I, H/I: Denies A/VH: Denies Sleep: See sleep assessment ADL's: Needs encouragement Group attendance: No groups this shift Were meds taken: Yes Any med S/E: None Mental Status Exam Appearance: Well groomed Eye contact: Good Behavior: Cooperative, isolative Speech: Normal volume, rate, rhythm Mood: Depressed Affect: Congruent to mood Thought process: Linear Thought Content: Discharge to [facility] Cognition: A&O X4 Insight: Fair Judgment: Poor to fair Interventions PRN's used:NA Therapeutic interventions: 1:1 assessment with patient. Ensured contract for safety, maintained a safe and therapeutic environment. Monitored behavior and need for intervention. Provided positive encouragement to perform ADLs. Maintained Q 15 minute safety checks. Restraints/seclusion/emergency medication: N/A Justification of Continued Inpatient Treatment: Patient requires interruption of current crisis, medication adjustments, and a safe and supportive environment.
[2019-03-30] MEDS: PARoxetine 20mg tablet PO SCH (07:55)
[2019-03-30] MEDS: valproic acid 250mg capsule PO SCH ×3 (07:55→20:42)
[2019-03-30] MEDS: gabapentin 400mg capsule PO SCH ×3 (07:55→20:42)
[2019-03-30] MEDS: busPIRone 15mg tablet PO SCH ×3 (07:55→20:41)
[2019-03-30] MEDS: buprenorphine/naloxone 8MG-2MG SUBlingual film SL SCH ×2 (07:56→20:41)
[2019-03-30 08:00] VITALS: BP 117/63
[2019-03-30] MEDS: miconazole nitrate 28.35 gm derm cream TP SCH ×3 (08:01→21:00)
[2019-03-30] MEDS: cyclobenzaprine 10mg tablet PO PRN (11:18)
[2019-03-30] MEDS: acetaminophen 325mg tablet PO PRN (13:27)
[2019-03-30] MEDS ORDERED: ibuprofen tablet 400 MG TABLET PO PRN (14:10)
[2019-03-30] MEDS ORDERED: ibuprofen 200mg tablet PO SCH (17:30)
--- NOTE | 2019-03-30 17:50 | NUR ---
Progress Note: Legal hold: 5250 Client on involuntary status for DTS Report received from LILIAN Santiago Why are they here: Patient has a history of chronic pain she states is due to a Hx of childhood Polio, she is opioid dependent. Patient ran out of her Suboxone so resorted to smoking heroin for a week. During that time period she was supposed to turn in [employer] paperwork, she did not so, so may have lost her voucher. Patient became suicidal with thoughts of overdosing or cutting an artery in her leg. Urine tox screen + for amphetamines. She reports she has been feeling this way for a few months and off of her medications X2 weeks. Assessment What has happened this shift: Pt. asleep at beginning of shift. Pt. took medications and ate breakfast in community room. Pt. requested flexaril for back pain. 1:1 done at bedside. Pt. reports she is looking forward to going to [facility] to ease back to getting back on her feet. Pt. reports she feels ashamed that she was living in her storage container and that she lost her [employer] housing and that she hasn't seen her grandchildren in 3 years because of difficult relations with her kids. Pt. did not go to [facility] because bed not available yet. S/I, H/I: Denies A/VH: Denies Sleep: Pt. napped x2 ADL's: Needs encouragement Group attendance: Yes Were meds taken: Yes Any med S/E: None Mental Status Exam Appearance: Well groomed Eye contact: Good Behavior: Cooperative, isolative Speech: Normal volume, rate, rhythm Mood: Depressed Affect: Congruent to mood Thought process: Linear Thought Content: Discharge to [facility]. Getting HUD housing back. Cognition: A&O X4 Insight: Fair Judgment: Poor to fair Interventions PRN's used:Flexaril Therapeutic interventions: 1:1 assessment with patient. Ensured contract for safety, maintained a safe and therapeutic environment. Monitored behavior and need for intervention. Provided positive encouragement to perform ADLs. Maintained Q 15 minute safety checks. Restraints/seclusion/emergency medication: N/A Justification of Continued Inpatient Treatment: Patient requires interruption of current crisis, medication adjustments, and a safe and supportive environment.
[2019-03-30 20:00] VITALS: BP 118/61
[2019-03-30] MEDS: zolpidem 5mg tablet PO SCH (20:41)
[2019-03-30] MEDS: prazosin 1mg capsule PO SCH (20:42)
--- NOTE | 2019-03-31 02:33 | NUR ---
Progress Note: Legal hold: 5250 Client on involuntary status for DTS Report received from LILIAN Patterson Why are they here: Patient has a history of chronic pain she states is due to a Hx of childhood Polio, she is opioid dependent. Patient ran out of her Suboxone so resorted to smoking heroin for a week. During that time period she was supposed to turn in [employer] paperwork, she did not so, so may have lost her voucher. Patient became suicidal with thoughts of overdosing or cutting an artery in her leg. Urine tox screen + for amphetamines. She reports she has been feeling this way for a few months and off of her medications X2 weeks. Assessment What has happened this shift: Patient is up on the unit at change of shift. She presents with good spirits, is friendly and interactive with others. She is cooperative for her 1:1 assessment where she speaks happily about her plans to go to the [facility] and have time to help herself back into housing and get herself situated and on her feet. She reports still being depressed and having moments of sadness but is able to redirect herself. She is cooperative for HS medications and goes to bed shortly after receiving her HS medications. S/I, H/I: Denies A/VH: Denies Sleep: See sleep assessment ADL's: Needs encouragement Group attendance: No groups this shift Were meds taken: Yes Any med S/E: None Mental Status Exam Appearance: Well groomed Eye contact: Good Behavior: Cooperative, isolative Speech: Normal volume, rate, rhythm Mood: Depressed Affect: Congruent to mood Thought process: Linear Thought Content: Discharge to [facility], future oriented Cognition: A&O X4 Insight: Fair Judgment: Poor to fair Interventions PRN's used:NA Therapeutic interventions: 1:1 assessment with patient. Ensured contract for safety, maintained a safe and therapeutic environment. Monitored behavior and need for intervention. Provided positive encouragement to perform ADLs. Maintained Q 15 minute safety checks. Restraints/seclusion/emergency medication: N/A Justification of Continued Inpatient Treatment: Patient requires interruption of current crisis, medication adjustments, and a safe and supportive environment.
[2019-03-31] MEDS: PARoxetine 20mg tablet PO SCH (07:41)
[2019-03-31] MEDS: buprenorphine/naloxone 8MG-2MG SUBlingual film SL SCH ×2 (07:41→20:00)
[2019-03-31] MEDS: busPIRone 15mg tablet PO SCH ×3 (07:41→21:04)
[2019-03-31] MEDS: valproic acid 250mg capsule PO SCH ×3 (07:41→21:04)
[2019-03-31] MEDS: gabapentin 400mg capsule PO SCH ×3 (07:41→21:04)
[2019-03-31] MEDS: miconazole nitrate 28.35 gm derm cream TP SCH ×3 (07:42→21:08)
[2019-03-31 08:00] VITALS: BP 104/52
[2019-03-31] MEDS: cyclobenzaprine 10mg tablet PO PRN (12:32)
--- NOTE | 2019-03-31 14:52 | NUR ---
RN Progress Note: Legal hold: 5250 Client on involuntary status for DTS Report received from LILIAN Browning Why are they here: Patient has a history of chronic pain she states is due to a Hx of childhood Polio, she is opioid dependent. Patient ran out of her Suboxone so resorted to smoking heroin for a week. During that time period she was supposed to turn in [employer] paperwork, she did not so, so may have lost her voucher. Patient became suicidal with thoughts of overdosing or cutting an artery in her leg. Urine tox screen + for amphetamines. She reports she has been feeling this way for a few months and off of her medications X2 weeks. Assessment What has happened this shift: Pt rated her depression today at a 5/10, denied SI. Pt initially believed she was going to be discharged today so was up early requesting that her cell phone be charged. Pt was informed that discharge was planned for Wednesday, pt was content with this. Pt c/o "neuropathy" today, states that her hands twitch and she drops things. Pt reported spilling 2 cups of coffee before breakfast, pt spilled an entire water pitcher in the community room while getting herself some water to take her medication just before breakfast. Dr Puente believes her dropping of things is related to nerve compression in her neck (pt has a Hx of neck surgery.) Pt asked this RN, "you ever get the feeling that someone doesn't care for you?" Pt stated she felt that another female pt with long elise hair did not like her. PCT reported that this other female pt had filled her entire water pitcher with the hot water for tea/hot chocolate before breakfast and Vielka had asked her nicely to save some for other people. The other pt told Vielka off swearing at her loudly in front of others in the community room. Pt c/o her roommate "swearing like a soldier." Roommate was spoken with and limit setting attempted. Charge nurse notified of pt's complaints. Pt requested prn Flexeril 10 mg and ibuprofen 600 mg @ 1232 for back pain/spasms with good effect. S/I, H/I: Pt denies A/VH: Pt denies Sleep: Pt reported not sleeping well last night in anticipation of discharge she had thought was happening today. ADL's: Independent Group attendance: Yes Were meds taken: Yes Any med S/E: None noted or reported Mental Status Exam Appearance: Clean, neat Eye contact: Good Behavior: Pleasant, cooperative, friendly Speech: Clear, audible Mood: Depressed Affect: Incongruent; bright Thought process: Linear Thought Content: Focused on pending discharge, does not like her roommate's cursing. Cognition: A&O X 4 Insight: Fair Judgment: Fair Interventions PRN's used: Ibuprofen 600 mg & Flexeril 10 mg at 1232 Therapeutic interventions: 1:1 assessment, active listening, therapeutic conversation, medication administration/education/monitoring including Suboxone administration/pain management, encouragement to attend groups, Q 15 minute safety checks. Restraints/seclusion/emergency medication: N/A Justification of Continued Inpatient Treatment: Patient requires interruption of current crisis and medication adjustment in a safe and supportive environment, plan is for pt to discharge to the [facility] on Wednesday.
[2019-03-31 19:42] VITALS: BP 115/64
[2019-03-31] MEDS: zolpidem 5mg tablet PO SCH (21:03)
[2019-03-31] MEDS: prazosin 1mg capsule PO SCH (21:03)
--- NOTE | 2019-04-01 04:09 | NUR ---
Progress Note: Legal hold: 5250 Client on involuntary status for DTS Report received from THAGN Serna Why are they here: Patient has a history of chronic pain she states is due to a Hx of childhood Polio, she is opioid dependent. Patient ran out of her Suboxone so resorted to smoking heroin for a week. During that time period she was supposed to turn in [employer] paperwork, she did not so, so may have lost her voucher. Patient became suicidal with thoughts of overdosing or cutting an artery in her leg. Urine tox screen + for amphetamines. She reports she has been feeling this way for a few months and off of her medications X2 weeks. Assessment What has happened this shift: Patient pacing the rouse at the beginning of shift. Briefly laid down in bed and fell asleep before going to the group room for HS snack. Patient explained depression and SI is how she ended up on the unit and no longer feels suicidal and expressed she is feeling much better than before the unit. Patient explained that transition social worker is looking into social science analyst to salvage HUD opportunity as she failed to file paperwork after being approved. She explained she is currently homeless. Patient also explained her discharge plan is to go to the [facility] and expressed enthusiasm stating "it is a great program if you let it." Although patient visible on the unit she continues to isolate and only socializing when approached. S/I, H/I: Denies A/VH: Denies Sleep: asleep at this time ADL's: Needs encouragement Group attendance: No groups this shift Were meds taken: Yes Any med S/E: None Mental Status Exam Appearance: Well groomed Eye contact: Good Behavior: Cooperative, isolative Speech: Normal volume, rate, rhythm Mood: Animated Affect: Depressed Thought process: Linear Thought Content: Discharge to [facility], future oriented Cognition: A&O X4 Insight: Fair Judgment: Poor to fair Interventions PRN's used:NA Therapeutic interventions: 1:1 assessment with patient. Ensured contract for safety, maintained a safe and therapeutic environment. Monitored behavior and need for intervention. Provided positive encouragement to perform ADLs. Maintained Q 15 minute safety checks. Restraints/seclusion/emergency medication: N/A Justification of Continued Inpatient Treatment: Patient requires interruption of current crisis, medication adjustments, and a safe and supportive environment.
[2019-04-01 08:00] VITALS: BP 112/59
[2019-04-01] MEDS: busPIRone 15mg tablet PO SCH ×3 (08:08→21:19)
[2019-04-01] MEDS: PARoxetine 20mg tablet PO SCH (08:08)
[2019-04-01] MEDS: gabapentin 400mg capsule PO SCH ×3 (08:08→21:19)
[2019-04-01] MEDS: valproic acid 250mg capsule PO SCH ×3 (08:08→21:18)
[2019-04-01] MEDS: buprenorphine/naloxone 8MG-2MG SUBlingual film SL SCH ×2 (08:08→21:23)
[2019-04-01] MEDS: miconazole nitrate 28.35 gm derm cream TP SCH ×3 (08:09→21:30)
[2019-04-01] MEDS: cyclobenzaprine 10mg tablet PO PRN ×2 (10:19→19:04)
[2019-04-01] MEDS: ibuprofen 200mg tablet PO PRN ×2 (10:20→19:04)
[2019-04-01] MEDS: hydrOXYzine 25 MG tablet PO PRN (12:42)
--- NOTE | 2019-04-01 15:53 | NUR ---
RN Progress Note: Legal hold: 5250 Client on involuntary status for DTS Report received from Mariam Beltrán RN Why are they here: Patient has a history of chronic pain she states is due to a Hx of childhood Polio, she is opioid dependent. Patient ran out of her Suboxone so resorted to smoking heroin for a week. During that time period she was supposed to turn in [employer] paperwork, she did not so, so may have lost her voucher. Patient became suicidal with thoughts of overdosing or cutting an artery in her leg. Urine tox screen + for amphetamines. She reports she has been feeling this way for a few months and off of her medications X2 weeks. Assessment What has happened this shift: When asked about depression today, pt stated, "it's there, plus I'm in pain today." Pt stated that the lior in the dining room brought up some things for me." (There had been a confused, agitated pt in the dining room at breakfast that required staff intervention and security show of support.) "Being homeless and around people like that a lot, plus I know ------(named another female pt here) from the [place] and all she does is complain, I get tired of it, she should be thankful. An attitude of gratitude goes a long ways." Pt requested prn Flexeril 10 mg and ibuprofen 600 mg at 1020 for neck/back pain and prn Atarax 25 mg at 1242 with good effect. S/I, H/I: Pt denies A/VH: Pt denies Sleep: Pt slept 3.5 hours per noc shift report, napped intermittently throughout the day. ADL's: Independent Group attendance: Yes Were meds taken: Yes Any med S/E: None noted or reported Mental Status Exam Appearance: slightly disheveled, food on scrubs Eye contact: Good Behavior: Pleasant, cooperative, friendly Speech: Clear, audible Mood: Depressed, anxious Affect: Incongruent; bright Thought process: Linear Thought Content: Tired of being around angry ungrateful people Cognition: A&O X 4 Insight: Fair to good Judgment: Fair Interventions PRN's used: Ibuprofen 600 mg & Flexeril 10 mg at 1020, Atarax 25 mg at 1242 Therapeutic interventions: 1:1 assessment, active listening, therapeutic conversation, medication administration/education/monitoring including Suboxone administration/pain management, encouragement to attend groups, positive reinforcement, Q 15 minute safety checks. Restraints/seclusion/emergency medication: N/A Justification of Continued Inpatient Treatment: Patient requires interruption of current crisis and medication adjustment in a safe and supportive environment, plan is for pt to discharge to the [facility] on Wednesday.
[2019-04-01 19:00] VITALS: BP 124/73
[2019-04-01] MEDS: zolpidem 5mg tablet PO SCH (21:18)
[2019-04-01] MEDS: prazosin 1mg capsule PO SCH (21:19)
--- NOTE | 2019-04-02 01:16 | NUR ---
RN Progress Note: Legal hold: 5250 Client on involuntary status for DTS Report received from Mariam Beltrán RN Why are they here: Patient has a history of chronic pain she states is due to a Hx of childhood Polio, she is opioid dependent. Patient ran out of her Suboxone so resorted to smoking heroin for a week. During that time period she was supposed to turn in [employer] paperwork, she did not so, so may have lost her voucher. Patient became suicidal with thoughts of overdosing or cutting an artery in her leg. Urine tox screen + for amphetamines. She reports she has been feeling this way for a few months and off of her medications X2 weeks. Assessment What has happened this shift: Pt up in group room socializes with other pts. Affect bright, pt is excited about discharge. Concerned that she lost her HUD housing pt says the social insurance specialist is sending a letter to try and get it reinstated. "I am very hopeful" Pt requested prn Flexeril 10 mg and ibuprofen 600 mg for neck/back pain reported good relief. S/I, H/I: Pt denies A/VH: Pt denies Sleep: sleeping at this time ADL's: Independent Group attendance:NA up in group room socializing Were meds taken: Yes Any med S/E: None noted or reported Mental Status Exam Appearance: clean neat Eye contact: Good Behavior: Pleasant, cooperative, friendly Speech: Clear, audible Mood: anxious Affect: Incongruent; bright Thought process: Linear Thought Content: Discharge to [facility],her dog and her HUD. Cognition: A&O X 4 Insight: Fair to good Judgment: Fair Interventions PRN's used: Ibuprofen, Flexeril Therapeutic interventions: 1:1 assessment, active listening, therapeutic conversation, medication administration/education/monitoring including Suboxone administration/pain management, encouragement to attend groups, positive reinforcement, Q 15 minute safety checks. Restraints/seclusion/emergency medication: N/A Justification of Continued Inpatient Treatment: Patient requires interruption of current crisis and medication adjustment in a safe and supportive environment, plan is for pt to discharge to the [facility] on Wednesday.
[2019-04-02] MEDS: valproic acid 250mg capsule PO SCH ×3 (07:34→20:47)
[2019-04-02] MEDS: busPIRone 15mg tablet PO SCH ×3 (07:34→20:48)
[2019-04-02] MEDS: buprenorphine/naloxone 8MG-2MG SUBlingual film SL SCH ×2 (07:34→20:48)
[2019-04-02] MEDS: gabapentin 400mg capsule PO SCH ×3 (07:34→20:47)
[2019-04-02] MEDS: miconazole nitrate 28.35 gm derm cream TP SCH ×3 (07:35→21:00)
[2019-04-02] MEDS: PARoxetine 20mg tablet PO SCH (07:35)
[2019-04-02 07:59] VITALS: BP 115/70
[2019-04-02] MEDS: ibuprofen 200mg tablet PO PRN (08:22)
[2019-04-02] MEDS: cyclobenzaprine 10mg tablet PO PRN (08:23)
[2019-04-02] MEDS: acetaminophen 325mg tablet PO PRN (13:52)
[2019-04-02] MEDS: hydrOXYzine 25 MG tablet PO PRN (14:20)
--- NOTE | 2019-04-02 18:22 | NUR ---
RN Progress Note: Legal hold: 5250 Client on involuntary status for DTS Report received from Mariam Henry RN Why are they here: Patient has a history of chronic pain she states is due to a Hx of childhood Polio, she is opioid dependent. Patient ran out of her Suboxone so resorted to smoking heroin for a week. During that time period she was supposed to turn in [employer] paperwork, she did not so, so may have lost her voucher. Patient became suicidal with thoughts of overdosing or cutting an artery in her leg. Urine tox screen + for amphetamines. She reports she has been feeling this way for a few months and off of her medications X2 weeks. Assessment What has happened this shift: Patient is up socializing with others in the group room. When asked how she is doing this morning she states "I feel special today." She reports that she is looking forward to going to the [facility]. She is friendly with staff and others throughout the day. Patient denies issues. S/I, H/I: none reported A/VH: none reported Sleep: 5.75hrs NOC and rested during the day. ADL's: Independent Group attendance:NA Were meds taken: Yes Any med S/E: None noted or reported Mental Status Exam Appearance: clean neat Eye contact: direct Behavior: Pleasant, cooperative, friendly Speech: Clear, soft tone , normal rate Mood: content Affect: congruent Thought process: Linear Thought Content: Discharge to [facility] Cognition: A&O X 4 Insight: Fair to good Judgment: Fair to good Interventions PRN's used: Ibuprofen, Flexeril Therapeutic interventions: 1:1 assessment, active listening, therapeutic conversation, medication administration/education/monitoring including Suboxone administration/pain management, encouragement to attend groups, positive reinforcement, Q 15 minute safety checks. Restraints/seclusion/emergency medication: N/A Justification of Continued Inpatient Treatment: Patient requires interruption of current crisis and medication adjustment in a safe and supportive environment, plan is for pt to discharge to the [facility] on Wednesday.
[2019-04-02 19:57] VITALS: BP_SYST 137
[2019-04-02] MEDS: prazosin 1mg capsule PO SCH (20:48)
[2019-04-02] MEDS: zolpidem 5mg tablet PO SCH (20:48)
--- NOTE | 2019-04-03 01:41 | NUR ---
RN Progress Note: Legal hold: 5250 Client on involuntary status for DTS Report received from LILIAN Serna Why are they here: Patient has a history of chronic pain she states is due to a Hx of childhood Polio, she is opioid dependent. Patient ran out of her Suboxone so resorted to smoking heroin for a week. During that time period she was supposed to turn in [employer] paperwork, she did not so, so may have lost her voucher. Patient became suicidal with thoughts of overdosing or cutting an artery in her leg. Urine tox screen + for amphetamines. She reports she has been feeling this way for a few months and off of her medications X2 weeks. Assessment What has happened this shift: Pt up in group room socializes with other pts. Pt had various c/o roommates behavior. The roommate had some delusional thinking and was yelling out. Pt did seem understanding that the roomate is ill. Pt continues to look forward to discharge tomorrow and verbalize gratitude to staff here. S/I, H/I: Pt denies A/VH: Pt denies Sleep: sleeping at this time ADL's: Independent Group attendance:NA up in group room socializing Were meds taken: Yes Any med S/E: None noted or reported Mental Status Exam Appearance: clean neat Eye contact: Good Behavior: Pleasant, cooperative, friendly Speech: Clear, audible Mood: anxious Affect: Incongruent; bright Thought process: Linear Thought Content: Discharge to [facility],her dog and her HUD. Cognition: A&O X 4 Insight: Fair to good Judgment: Fair Interventions PRN's used: Ibuprofen, Flexeril Therapeutic interventions: 1:1 assessment, active listening, therapeutic conversation, medication administration/education/monitoring including Suboxone administration/pain management, encouragement to attend groups, positive reinforcement, Q 15 minute safety checks. Restraints/seclusion/emergency medication: N/A Justification of Continued Inpatient Treatment: Patient requires interruption of current crisis and medication adjustment in a safe and supportive environment, plan is for pt to discharge to the [facility] on Wednesday.
[2019-04-03] MEDS: busPIRone 15mg tablet PO SCH (07:42)
[2019-04-03] MEDS: gabapentin 400mg capsule PO SCH (07:42)
[2019-04-03] MEDS: buprenorphine/naloxone 8MG-2MG SUBlingual film SL SCH (07:42)
[2019-04-03] MEDS: PARoxetine 20mg tablet PO SCH (07:43)
[2019-04-03] MEDS: valproic acid 250mg capsule PO SCH (07:43)
[2019-04-03 08:00] VITALS: BP 135/72
[2019-04-03] MEDS: miconazole nitrate 28.35 gm derm cream TP SCH (08:00)
[2019-04-03] MEDS ORDERED: PARO40TA4 PO (09:59)
[2019-04-03] MEDS ORDERED: ZOLP10TA PO (09:59)
[2019-04-03] MEDS ORDERED: CYCL-1 PO (09:59)
[2019-04-03] MEDS ORDERED: BUS15T PO (09:59)
[2019-04-03] MEDS ORDERED: BUPR1FIL3 SL (09:59)
[2019-04-03] MEDS ORDERED: PRAZ1CAP5 PO (09:59)
[2019-04-03] MEDS ORDERED: GABA800T11 PO ×2 (09:59)
[2019-04-03] MEDS ORDERED: VALP250C44 PO (09:59)
[2019-04-03] MEDS ORDERED: HYDR-3686 PO (09:59)
--- NOTE | 2019-04-03 12:15 | NUR ---
DISCHARGE NOTE: Patient is discharged with a County armored car guard and driver here to take her to [facility] Patient denies SI. She has follow-up appointments with [facility]. Pt. is discharged in stable condition with all belongings.
== END 2019-04-03 12:18 | disposition home or self-care (01) | DRG 885 ==
LOC: ADULT MH 23:50
PROVIDERS: ADMIT Psychiatry & Neurology Psychiatry; ATTEND Psychiatry & Neurology Psychiatry
DX: F33.2 Major depressive disorder, recurrent severe without psychotic features (principal); R45.851 Suicidal ideations; G62.9 Polyneuropathy, unspecified; F11.11 Opioid abuse, in remission; F15.10 Other stimulant abuse, uncomplicated; F17.200 Nicotine dependence, unspecified, uncomplicated; Z71.6 Tobacco abuse counseling; F41.9 Anxiety disorder, unspecified; G40.909 Epilepsy, unspecified, not intractable, without status epilepticus; G89.29 Other chronic pain; Z90.710 Acquired absence of both cervix and uterus; Z86.12 Personal history of poliomyelitis; M17.10 Unilateral primary osteoarthritis, unspecified knee; M16.10 Unilateral primary osteoarthritis, unspecified hip; Z79.899 Other long term (current) drug therapy; Z88.1 Allergy status to other antibiotic agents; Z88.8 Allergy status to other drugs, medicaments and biological substances
CPT/HCPCS: 36415; 80053; 80061; 80305; 80320; 81001; 83036; 85025; 85610; 87081; Z7610

== ENCOUNTER 2019-08-10 12:51 | Emergency (ER) | payer MEDICARE, MEDICAID ==
[~2019-08-10] VITALS: Ht 165.1 cm; Wt 65.9 kg
[~2019-08-10 12:51] MED LIST changes: -BUPR1FIL5 SL; +BUS15T PO; -BUSP15TA8 PO; -FLUT1DIS4 INH; +HYDR-3686 PO; -PARO10TA85 PO; +PARO40TA4 PO; -VALP250C3 PO; +VALP250C44 PO; +ZOLP10TA PO; -ZOLP5TAB8 PO
[2019-08-10 13:41] LABS: BASOPHILS % (AUTO) 0.4 % (0-1); EOSINOPHILS % (AUTO) 0 % (0-6); HEMOGLOBIN 14.9 g/dl (12.0-16.0); LYMPHOCYTES # (AUTO) 0.4 X10'3 (1.1-4.8); LYMPHOCYTES % (AUTO) 6.7 % (21-51); MEAN CORPUSCULAR HGB CONC 33.9 g/dL (33.0-36.5); MEAN CORPUSCULAR VOLUME 88.5 FL (78-98); MEAN PLATELET VOLUME 7.1 FL (7.4-10.4); MONOCYTES # (AUTO) 0.4 X10'3 (0-0.9); NEUTROPHILS # (AUTO) 5.2 X10'3 (1.8-7.7); NEUTROPHILS % (AUTO) 85.9 % (42-75); PLATELET COUNT 244 X10'3 (140-440); RED BLOOD COUNT 4.97 X10'6 (4.20-5.60); RED CELL DISTRIBUTION WIDTH 15.6 % (11.5-14.5)
[2019-08-10 13:48] LABS: CLARITY,URINE CLEAR (Clear); COLOR,URINE YELLOW (Yellow); GLUCOSE, URINE 100 mg/dl (Neg); KETONES,URINE NEGATIVE (Neg); LEUKOCYTE ESTERASE ,URINE NEGATIVE (Neg); NITRITES, URINE NEGATIVE (Neg); OCCULT BLOOD,URINE MODERATE (Neg); PH,URINE 6.5 (4.8-8.0); PROTEIN,URINE >=300 mg/dl (Neg)
[2019-08-10 13:53] LABS: ALANINE AMINOTRANSFERASE 25 U/L (12-78); ALBUMIN 3.7 G/DL (3.4-5.0); ALBUMIN/GLOBULIN RATIO 0.9 (1.1-1.5); ALKALINE PHOSPHATASE 88 IU/L (46-116); AMYLASE 24 U/L (25-115); ANION GAP 6 (8-16); ASPARTATE AMINO TRANSFERASE 25 U/L (10-37); BILIRUBIN,TOTAL 0.2 MG/DL (0.1-1.0); BLOOD UREA NITROGEN 15 MG/DL (7-18); BUN/CREATININE RATIO 23.1 (6.6-38.0); CHLORIDE 98 MMOL/L (99-107); CREATININE 0.65 MG/DL (0.40-0.90); GLUCOSE 118 MG/DL (70-104); LIPASE 66 U/L (73-393); POTASSIUM 3.7 MMOL/L (3.5-5.1); SODIUM 135 MMOL/L (135-145); TOTAL PROTEIN 7.8 G/DL (6.4-8.2); eGFR > 90 ML/MIN
[2019-08-10 13:55] LABS: UA COLLECTION TYPE CLN CATCH MIDSTREAM
[2019-08-10 13:57] LABS: BACTERIA,URINE 1+ /HPF (Neg); MUCUS STRANDS MANY /LPF (Neg); SQUAMOUS EPITHELIAL CELL,UR MODERATE /LPF (FEW)
[2019-08-10 13:58] LABS: WBC,URINE 0-4 /HPF (0-4)
[2019-08-10] MEDS ORDERED: normal saline 1000ML IV soln IVB ONE (14:00)
[2019-08-10] MEDS ORDERED: albuterol 2.5 MG/3 ML nebule NEB ONE (14:00)
[2019-08-10] MEDS ORDERED: SUMAtriptan succ. 6 MG/0.5ml vial SQ ONE (14:00)
[2019-08-10] MEDS ORDERED: proCHLORperazine 10 MG/2 ml inj IV ONE (14:00)
[2019-08-10 14:33] LABS: MAGNESIUM 1.9 MG/DL (1.5-2.4)
[2019-08-10] MEDS ORDERED: dicyclomine 10 MG capsule PO ONE (17:10)
[2019-08-10] MEDS ORDERED: ONDA4TAB6 PO (17:12)
[2019-08-10 17:42] VITALS: BP 153/76
== END 2019-08-10 17:43 | disposition home or self-care (01) ==
LOC: ER 12:51
DX: E86.0 Dehydration (principal); R19.7 Diarrhea, unspecified; M54.2 Cervicalgia; G43.909 Migraine, unspecified, not intractable, without status migrainosus; R11.10 Vomiting, unspecified; J45.909 Unspecified asthma, uncomplicated; G89.29 Other chronic pain; F41.9 Anxiety disorder, unspecified; F12.90 Cannabis use, unspecified, uncomplicated; F15.90 Other stimulant use, unspecified, uncomplicated; F32.9 Major depressive disorder, single episode, unspecified; F11.90 Opioid use, unspecified, uncomplicated; Z86.14 Personal history of Methicillin resistant Staphylococcus aureus infection; Z90.710 Acquired absence of both cervix and uterus; Z98.890 Other specified postprocedural states; Z60.2 Problems related to living alone; Z56.0 Unemployment, unspecified; Z88.1 Allergy status to other antibiotic agents; Z88.8 Allergy status to other drugs, medicaments and biological substances; Z79.899 Other long term (current) drug therapy
CPT/HCPCS: 36415; 80053; 81001; 82150; 83690; 83735; 85025; 87502; 87503; 94640; 96361; 96372; 96374; 99284; J0780; J7030; 94760; 99283; J3030

== ENCOUNTER 2019-10-18 18:49 | Emergency (ER) | payer MEDICARE, MEDICAID ==
[~2019-10-18] VITALS: Ht 152.4 cm; Wt 67.3 kg
[~2019-10-18 18:49] MED LIST changes: +ONDA4TAB6 PO
[2019-10-18] MEDS ORDERED: TETanus/Pertussis (Acell)/Diphther VAC/PF (Tdap-Adult) 0.5ml syringe IMVAC ONE (19:00)
[2019-10-18] MEDS ORDERED: LIDOcaine 1% W/epiNEPHrine 1:200,000 10ml vial IJ ONE (19:00)
[2019-10-18 20:30] VITALS: BP 115/72
--- NOTE | 2019-10-18 20:32 | NUR ---
CLEANED SUTURED LAC ON FOREHEAD, DRESSED WITH XEROFORM, NONADHERENT DRESSING AND BANDAID
== END 2019-10-18 20:33 | disposition home or self-care (01) ==
LOC: ER 18:49
DX: S06.0X0A Concussion without loss of consciousness, initial encounter (principal); S01.81XA Laceration without foreign body of other part of head, initial encounter; S00.03XA Contusion of scalp, initial encounter; J45.909 Unspecified asthma, uncomplicated; G89.29 Other chronic pain; F41.9 Anxiety disorder, unspecified; F32.9 Major depressive disorder, single episode, unspecified; F12.90 Cannabis use, unspecified, uncomplicated; F15.90 Other stimulant use, unspecified, uncomplicated; F11.90 Opioid use, unspecified, uncomplicated; Z86.14 Personal history of Methicillin resistant Staphylococcus aureus infection; Z90.710 Acquired absence of both cervix and uterus; Z98.890 Other specified postprocedural states; Z88.0 Allergy status to penicillin; Z88.1 Allergy status to other antibiotic agents; Z88.8 Allergy status to other drugs, medicaments and biological substances; Z79.899 Other long term (current) drug therapy; W01.198A Fall on same level from slipping, tripping and stumbling with subsequent striking against other object, initial encounter; Y93.89 Activity, other specified; Y92.89 Other specified places as the place of occurrence of the external cause; Y99.8 Other external cause status
CPT/HCPCS: 12011; 70450; 70486; 90715; 99285

== ENCOUNTER 2020-02-05 10:12 | Emergency (ER) | payer MEDICARE, MEDICAID ==
[~2020-02-05] VITALS: Ht 165.1 cm; Wt 70.7 kg
[2020-02-05 10:18] VITALS: BP 127/90
[2020-02-05] MEDS ORDERED: mupirocin 2% ointment 22GM TP STA (11:29)
== END 2020-02-05 11:47 | disposition home or self-care (01) ==
LOC: ER 10:14
DX: T14.8XXA Other injury of unspecified body region, initial encounter (principal); F41.9 Anxiety disorder, unspecified; G43.909 Migraine, unspecified, not intractable, without status migrainosus; J45.909 Unspecified asthma, uncomplicated; G89.29 Other chronic pain; F32.9 Major depressive disorder, single episode, unspecified; F12.90 Cannabis use, unspecified, uncomplicated; F15.90 Other stimulant use, unspecified, uncomplicated; F11.90 Opioid use, unspecified, uncomplicated; Z86.14 Personal history of Methicillin resistant Staphylococcus aureus infection; Z90.710 Acquired absence of both cervix and uterus; Z98.890 Other specified postprocedural states; Z60.2 Problems related to living alone; Z56.0 Unemployment, unspecified; Z88.8 Allergy status to other drugs, medicaments and biological substances; Z79.899 Other long term (current) drug therapy; X58.XXXA Exposure to other specified factors, initial encounter; Y93.89 Activity, other specified; Y92.89 Other specified places as the place of occurrence of the external cause; Y99.8 Other external cause status
CPT/HCPCS: 99283

== ENCOUNTER 2020-04-14 11:43 | Emergency (ER) | payer MEDICARE, MEDICAID ==
[~2020-04-14] VITALS: Ht 162.6 cm; Wt 71.8 kg
[2020-04-14 12:37] LABS: BASOPHILS # (AUTO) 0.1 X10'3 (0-0.2); BASOPHILS % (AUTO) 1.1 % (0-1); EOSINOPHILS # (AUTO) 0.1 X10'3 (0-0.9); EOSINOPHILS % (AUTO) 2.9 % (0-6); HEMATOCRIT 39.7 % (35.0-45.0); HEMOGLOBIN 13.4 g/dl (12.0-16.0); LYMPHOCYTES # (AUTO) 1.6 X10'3 (1.1-4.8); LYMPHOCYTES % (AUTO) 34.4 % (21-51); MEAN CORPUSCULAR HEMOGLOBIN 30.2 PG (27.0-31.0); MEAN CORPUSCULAR HGB CONC 33.8 g/dL (33.0-36.5); MEAN CORPUSCULAR VOLUME 89.5 FL (78-98); MEAN PLATELET VOLUME 7.5 FL (7.4-10.4); MONOCYTES # (AUTO) 0.2 X10'3 (0-0.9); MONOCYTES % (AUTO) 5.2 % (2-12); NEUTROPHILS # (AUTO) 2.7 X10'3 (1.8-7.7); NEUTROPHILS % (AUTO) 56.4 % (42-75); PLATELET COUNT 263 X10'3 (140-440); RED BLOOD COUNT 4.44 X10'6 (4.20-5.60); RED CELL DISTRIBUTION WIDTH 14.7 % (11.5-14.5); WHITE BLOOD COUNT 4.7 X10'3 (4.5-11.0)
--- NOTE | 2020-04-14 12:40 | NUR ---
assumed care of pt from Letty QUINTANA, pt is resting quietly on gurney
[2020-04-14 12:47] LABS: ALANINE AMINOTRANSFERASE 24 U/L (12-78); ALBUMIN 2.8 G/DL (3.4-5.0); ALBUMIN/GLOBULIN RATIO 0.8 (1.1-1.5); ALKALINE PHOSPHATASE 69 IU/L (46-116); ANION GAP 5 (8-16); ASPARTATE AMINO TRANSFERASE 22 U/L (10-37); BILIRUBIN,TOTAL 0.3 MG/DL (0.1-1.0); BLOOD UREA NITROGEN 12 MG/DL (7-18); BUN/CREATININE RATIO 21.8 (6.6-38.0); CALCIUM 8.5 MG/DL (8.5-10.1); CHLORIDE 104 MMOL/L (99-107); CREATININE 0.55 MG/DL (0.40-0.90); ETHANOL < 0.010 GM/DL (0.0-0.010); GLUCOSE 88 MG/DL (70-104); POTASSIUM 3.6 MMOL/L (3.5-5.1); SODIUM 141 MMOL/L (135-145); TOTAL CARBON DIOXIDE 31.6 MMOL/L (24-32); TOTAL PROTEIN 6.1 G/DL (6.4-8.2); eGFR > 90 ML/MIN
--- NOTE | 2020-04-14 13:45 | NUR ---
pt is resting quietly on gurney, resp even and unlabored
--- NOTE | 2020-04-14 14:30 | NUR ---
gave pt pitcher of ice water, she is unable to give urine sample
--- NOTE | 2020-04-14 14:45 | NUR ---
pt amb with steady gait to restroom
[2020-04-14 14:53] LABS: GLUCOSE, URINE NEGATIVE (Neg); KETONES,URINE 15 mg/dl (Neg); LEUKOCYTE ESTERASE ,URINE NEGATIVE (Neg); NITRITES, URINE NEGATIVE (Neg); OCCULT BLOOD,URINE TRACE-INTACT (Neg); PROTEIN,URINE 30 mg/dl (Neg)
[2020-04-14 14:56] LABS: COLOR,URINE DARK YELLOW (Yellow); UA COLLECTION TYPE CLN CATCH MIDSTREAM
[2020-04-14 14:57] LABS: CLARITY,URINE SLIGHTLY CLOUDY (Clear)
[2020-04-14 15:00] LABS: BACTERIA,URINE FEW /HPF (Neg); CAL OXALATE CRYSTALS FEW /HPF (NEGATIVE); MUCUS STRANDS MANY /LPF (Neg); SQUAMOUS EPITHELIAL CELL,UR FEW /LPF (FEW); WBC,URINE 0-4 /HPF (0-4)
[2020-04-14 15:01] LABS: COARSE GRANULAR CAST 0-3 /LPF (NEGATIVE)
[2020-04-14 15:07] LABS: URINE AMPHETAMINE SCREEN POSITIVE (Neg); URINE BARBITUATE SCREEN NEGATIVE (Neg); URINE BENZODIAZEPINES SCREEN NEGATIVE (Neg); URINE CANNABINOID SCREEN NEGATIVE (Neg); URINE COCAINE SCREEN NEGATIVE (Neg); URINE METHADONE SCREEN NEGATIVE (Neg); URINE OPIATE SCREEN POSITIVE (Neg); URINE PHENCYCLIDINE SCREEN NEGATIVE (Neg)
[2020-04-14] MEDS ORDERED: GABA800T11 PO ×2 (17:08)
[2020-04-14] MEDS ORDERED: BUPR1FIL3 SL (17:08)
[2020-04-14] MEDS ORDERED: ONDA4TAB6 PO (17:08)
[2020-04-14] MEDS ORDERED: ZOLP10TA PO (17:08)
[2020-04-14] MEDS ORDERED: HYDR-3686 PO ×2 (17:08)
[2020-04-14] MEDS ORDERED: BUSP10TA11 PO (17:08)
[2020-04-14] MEDS ORDERED: ZOLP5TAB8 PO ×2 (17:08)
[2020-04-14] MEDS ORDERED: PARO40TA4 PO (17:08)
[2020-04-14] MEDS ORDERED: VALP250C3 PO (17:08)
[2020-04-14] MEDS ORDERED: PRAZ1CAP5 PO (17:08)
[2020-04-14] MEDS ORDERED: CYCL-394 PO (17:08)
--- NOTE | 2020-04-14 17:22 | NUR ---
PT IS RESTING QUIETLY ON BED
[2020-04-14] MEDS ORDERED: hydrOXYzine 25 MG tablet PO PRN (17:55)
[2020-04-14] MEDS ORDERED: zolpidem 5mg tablet PO PRN (17:55)
[2020-04-14] MEDS ORDERED: ondansetron 4mg rapidly disintigrating tab PO PRN (18:00)
--- NOTE | 2020-04-14 19:00 | NUR ---
pt is resting quietly on gurney,
--- NOTE | 2020-04-14 20:51 | NUR ---
pt is sleeping, resp even and unlabored
[2020-04-14] MEDS ORDERED: prazosin 1mg capsule PO SCH (21:00)
[2020-04-14] MEDS ORDERED: gabapentin 400mg capsule PO SCH (21:00)
--- NOTE | 2020-04-14 21:09 | NUR ---
pt is being evaluated by LILIAN Smith with [facility]
[2020-04-14] MEDS: gabapentin 400mg capsule PO SCH (21:22)
[2020-04-14] MEDS: hydrOXYzine 25 MG tablet PO SCH (21:22)
[2020-04-14] MEDS: valproic acid 250mg capsule PO SCH (21:22)
[2020-04-14] MEDS: buprenorphine/naloxone 8MG-2MG SUBlingual film SL SCH (21:23)
[2020-04-14] MEDS: busPIRone 15mg tablet PO SCH (21:23)
[2020-04-14] MEDS: cyclobenzaprine 10mg tablet PO SCH (21:23)
--- NOTE | 2020-04-14 23:38 | NUR ---
pt is sleeping, resp even and unlabored
[2020-04-15 05:25] VITALS: BP 115/71
[2020-04-15] MEDS ORDERED: ibuprofen 200mg tablet PO PRN (05:25)
--- NOTE | 2020-04-15 05:30 | NUR ---
Pt ambulated to the bathroom for voiding. She c/o lower back pain due to recent falls. Discussed with Md Long who gave verbal order for 600mg motrin PO prn which was given to the pt. She is resting back in bed.
--- NOTE | 2020-04-15 06:44 | NUR ---
pt resting in bed sleeping in her lft lateral position,no distress noted,will cont to monitor.
[2020-04-15] MEDS ORDERED: PARoxetine 20mg tablet PO SCH (08:00)
[2020-04-15] MEDS: cyclobenzaprine 10mg tablet PO SCH (08:50)
[2020-04-15] MEDS: gabapentin 400mg capsule PO SCH (08:50)
[2020-04-15] MEDS: hydrOXYzine 25 MG tablet PO SCH (08:50)
[2020-04-15] MEDS: busPIRone 15mg tablet PO SCH (08:50)
[2020-04-15] MEDS: valproic acid 250mg capsule PO SCH (08:50)
[2020-04-15] MEDS: buprenorphine/naloxone 8MG-2MG SUBlingual film SL SCH (08:50)
--- NOTE | 2020-04-15 09:13 | NUR ---
[facility] eval at bedside.will cont to monitor.
== END 2020-04-15 10:24 ==
LOC: ER 11:43
DX: R45.851 Suicidal ideations (principal); G43.909 Migraine, unspecified, not intractable, without status migrainosus; J45.909 Unspecified asthma, uncomplicated; G89.29 Other chronic pain; F41.9 Anxiety disorder, unspecified; F32.9 Major depressive disorder, single episode, unspecified; F12.90 Cannabis use, unspecified, uncomplicated; F15.90 Other stimulant use, unspecified, uncomplicated; F11.90 Opioid use, unspecified, uncomplicated; Z86.14 Personal history of Methicillin resistant Staphylococcus aureus infection; Z90.710 Acquired absence of both cervix and uterus; Z98.890 Other specified postprocedural states; Z60.2 Problems related to living alone; Z56.0 Unemployment, unspecified; Z88.8 Allergy status to other drugs, medicaments and biological substances; Z79.899 Other long term (current) drug therapy
CPT/HCPCS: 99285; Q0177; 36415; 80053; 80305; 80320; 81001; 85025

== ENCOUNTER 2020-11-21 09:54 | Emergency (ER) | payer MEDICARE, MEDICAID ==
[~2020-11-21] VITALS: Ht 165.1 cm; Wt 53.1 kg
[~2020-11-21 09:54] MED LIST changes: +ARIP5TAB60 PO; -BUS15T PO; +BUSP10TA10 PO; -CYCL-1 PO; +DOCU100C40 PO; +NICO-668 BC; -ONDA4TAB6 PO; -PARO40TA4 PO; +TIZA4TAB5 PO; +TRAZ-251 PO; +VENL75TA90 PO; -ZOLP10TA PO
[2020-11-21 11:36] VITALS: BP 114/78
[2020-11-21] MEDS ORDERED: famotidine/PF 10 mg/ml inj IV ONE (12:10)
[2020-11-21] MEDS ORDERED: PANT20TA18 PO (12:10)
[2020-11-21] MEDS ORDERED: acetaminophen 325mg tablet PO ONE (12:10)
[2020-11-21] MEDS ORDERED: pantoprazole 40 MG vial IV ONE (12:10)
[2020-11-21] MEDS ORDERED: ketorolac trometh. 30mg/ml inj. IV ONE (12:10)
[2020-11-21] MEDS ORDERED: ondansetron/PF 4mg/2ml inj IV ONE (12:10)
[2020-11-21] MEDS ORDERED: orphenadrine citrate 60mg/2ml inj. IM ONE (12:10)
[2020-11-21] MEDS ORDERED: ONDA4TAB6 PO (12:10)
[2020-11-21] MEDS ORDERED: normal saline 1000ml 1,000 ML IV ONE (12:10)
[2020-11-21] MEDS ORDERED: ketorolac tromethamine 15mg/ml inj. IV ONE (12:15)
== END 2020-11-21 12:49 | disposition home or self-care (01) ==
LOC: ER 09:55
DX: M25.552 Pain in left hip (principal); M25.551 Pain in right hip; R11.0 Nausea; G43.909 Migraine, unspecified, not intractable, without status migrainosus; J45.909 Unspecified asthma, uncomplicated; G89.29 Other chronic pain; F41.9 Anxiety disorder, unspecified; F32.9 Major depressive disorder, single episode, unspecified; F12.90 Cannabis use, unspecified, uncomplicated; F15.90 Other stimulant use, unspecified, uncomplicated; F11.90 Opioid use, unspecified, uncomplicated; Z87.01 Personal history of pneumonia (recurrent); Z87.440 Personal history of urinary (tract) infections; Z86.14 Personal history of Methicillin resistant Staphylococcus aureus infection; Z90.710 Acquired absence of both cervix and uterus; Z98.890 Other specified postprocedural states; Z60.2 Problems related to living alone; Z56.0 Unemployment, unspecified; Z88.1 Allergy status to other antibiotic agents; Z88.8 Allergy status to other drugs, medicaments and biological substances; Z79.899 Other long term (current) drug therapy
CPT/HCPCS: 99284